=== PATIENT | female | born 1945 | race Caucasian/White ===

== ENCOUNTER 2020-01-29 01:33 | Inpatient (IN) | payer MEDICARE, BC ==
[~2020-01-29] VITALS: Ht 167.6 cm; Wt 72.7 kg
[~2020-01-29 01:33] MED LIST: AMLO5TAB4 PO; ASPI-611 PO; ATOR20TA PO; CALC-1074 PO; CHOL200026 PO; CLOP-32 PO; CYAN-51 PO; FAMO20TA82 PO; FISH1CAP15 PO; GLUC1CAP17 PO; LISI1TAB51 PO; MAGN400C PO; NITR0.4T51 SL; POTA2TAB17 PO; PRED10TA PO
[2020-01-29 02:07] LABS: BASOPHILS # (AUTO) 0.1 X10'3 (0-0.2); BASOPHILS % (AUTO) 0.8 % (0-1); EOSINOPHILS # (AUTO) 0.1 X10'3 (0-0.9); EOSINOPHILS % (AUTO) 1.2 % (0-6); HEMOGLOBIN 12.4 g/dl (12.0-16.0); LYMPHOCYTES # (AUTO) 1.3 X10'3 (1.1-4.8); LYMPHOCYTES % (AUTO) 14.4 % (21-51); MEAN CORPUSCULAR HEMOGLOBIN 32.4 PG (27.0-31.0); MEAN CORPUSCULAR HGB CONC 34.4 g/dL (33.0-36.5); MEAN CORPUSCULAR VOLUME 94.3 FL (78-98); MEAN PLATELET VOLUME 6.9 FL (7.4-10.4); MONOCYTES # (AUTO) 0.5 X10'3 (0-0.9); MONOCYTES % (AUTO) 5.7 % (2-12); NEUTROPHILS % (AUTO) 77.9 % (42-75); PLATELET COUNT 402 X10'3 (140-440); RED BLOOD COUNT 3.82 X10'6 (4.20-5.60); RED CELL DISTRIBUTION WIDTH 14.2 % (11.5-14.5)
[2020-01-29 02:21] LABS: ALANINE AMINOTRANSFERASE 26 U/L (12-78); ALBUMIN 3.4 G/DL (3.4-5.0); ALKALINE PHOSPHATASE 71 IU/L (46-116); ANION GAP 5 (8-16); ASPARTATE AMINO TRANSFERASE 21 U/L (10-37); BILIRUBIN,TOTAL 0.3 MG/DL (0.1-1.0); BLOOD UREA NITROGEN 21 MG/DL (7-18); BUN/CREATININE RATIO 25.9 (6.6-38.0); CALCIUM 8.9 MG/DL (8.5-10.1); CHLORIDE 100 MMOL/L (99-107); CREATININE 0.81 MG/DL (0.40-0.90); POTASSIUM 3.7 MMOL/L (3.5-5.1); SODIUM 137 MMOL/L (135-145); TOTAL CARBON DIOXIDE 32.1 MMOL/L (24-32); TOTAL PROTEIN 6.9 G/DL (6.4-8.2); eGFR 69 ML/MIN
[2020-01-29 02:31] LABS: GLUCOSE 136 MG/DL (70-104)
[2020-01-29] MEDS ORDERED: pantoprazole 40 MG vial IV ONE (04:15)
[2020-01-29] MEDS ORDERED: normal saline 1000ML IV soln IVB ONE (04:15)
[2020-01-29 04:35] LABS: PARTIAL THROMBOPLASTIN TIME 32 SECONDS (22-32)
[2020-01-29] MEDS ORDERED: methylPREDNISolone sod succ 125mg/2ml vial IV ONE (05:30)
[2020-01-29] MEDS ORDERED: ipratropium/albuterol 3ml nebule NEB ONE (05:30)
[2020-01-29] MEDS ORDERED: mag hydrox/Alum hydrox/simeth 30ml oral suspension PO PRN (05:45)
[2020-01-29] MEDS ORDERED: acetaminophen 325mg tablet PO PRN ×2 (05:45)
[2020-01-29] MEDS ORDERED: HYDROcodone/acetaminophen 5mg/325mg tablet PO PRN (05:45)
[2020-01-29] MEDS ORDERED: morphine 2 MG/ML inj. syringe IV PRN ×2 (05:45)
[2020-01-29] MEDS ORDERED: ondansetron/PF 4mg/2ml inj IV PRN (05:45)
[2020-01-29] MEDS ORDERED: magnesium hydroxide 30ml (MOM) UD suspension PO PRN (05:45)
--- NOTE | 2020-01-29 06:46 | NUR ---
I have received report from Franki ED RN and had the opportunity to ask questions and assume patient care.
--- NOTE | 2020-01-29 07:16 | NUR ---
Pt arrived to Ortho/Neuro floor and transferred to hospital bed. Call light placed within reach, bed rails up x2.
[2020-01-29 07:30] VITALS: BP 118/61
[2020-01-29] MEDS: dextrose 5%-1/2 normal saline 1,000 ML IV SCH ×2 (07:43→17:35)
[2020-01-29] MEDS ORDERED: magnesium 4gm in 100ml NS 100 ML IV PRN (09:55)
[2020-01-29] MEDS ORDERED: potassium CL 10mEq/100ml bag 100 ML IV PRN (09:55)
[2020-01-29] MEDS ORDERED: magnesium Cl slow-release 64mg tablet PO PRN (09:55)
[2020-01-29] MEDS ORDERED: potassium Cl 20 mEq SR tablet PO PRN (09:55)
[2020-01-29 10:00] VITALS: BP 119/57
[2020-01-29] MEDS ORDERED: nitroGLYCERIN 0.4mg SUBLingual tab SL PRN (10:05)
[2020-01-29] MEDS ORDERED: albuterol 2.5 MG/3 ML nebule NEB PRN (10:05)
[2020-01-29 10:16] LABS: HEMOGLOBIN 11.2 g/dl (12.0-16.0); MEAN CORPUSCULAR HEMOGLOBIN 32.7 PG (27.0-31.0); MEAN CORPUSCULAR VOLUME 93.5 FL (78-98); MEAN PLATELET VOLUME 6.7 FL (7.4-10.4); PLATELET COUNT 367 X10'3 (140-440); RED BLOOD COUNT 3.42 X10'6 (4.20-5.60)
[2020-01-29 10:27] VITALS: BP_SYST 117; BP_SYST 120; BP_SYST 121; BP_DIAS 46; BP_DIAS 49
[2020-01-29] MEDS: magnesium oxide 400mg tablet PO SCH (11:13)
[2020-01-29] MEDS: HYDROchlorothiazide 12.5mg capsule PO SCH (11:13)
[2020-01-29] MEDS: calcium carbonate/vitamin D3 tablet PO SCH (11:14)
[2020-01-29] MEDS: lisinopril 20mg tablet PO SCH (11:15)
[2020-01-29] MEDS: cyanocobalamin 500mcg tablet PO SCH (11:15)
[2020-01-29] MEDS ORDERED: PEG 3350/Na sulf,bicarb,Cl/KCl oral sol 4 liter bottle PO ONE (16:00)
--- NOTE | 2020-01-29 16:18 | NUR ---
Student documentation: I have reviewed assessments performed and documented by Carole Vazquez SN [facility].
[2020-01-29 18:00] VITALS: BP 137/53
--- NOTE | 2020-01-29 18:24 | NUR ---
Problems reprioritized. Patient report given, questions answered & plan of care reviewed with MARGARET Saldivar.
--- NOTE | 2020-01-29 18:27 | NUR ---
Patient in room ORTHO 4015. I have received report from nyla ROBLES and had the opportunity to ask questions and assume patient care.
[2020-01-29] MEDS: K and/or MAG REPLACEMENT MC SCH (19:29)
[2020-01-29 20:00] VITALS: BP_SYST 122; BP_SYST 137; BP_DIAS 49; BP_DIAS 63
[2020-01-29] MEDS: atorvastatin 20mg tablet PO SCH (20:11)
[2020-01-29 22:00] VITALS: BP 159/64
[2020-01-30] VITALS (17 sets, daily range): BP systolic 87–155; BP diastolic 31–67
[2020-01-30] MEDS: dextrose 5%-1/2 normal saline 1,000 ML IV SCH (02:56)
--- NOTE | 2020-01-30 06:37 | NUR ---
Problems reprioritized. Patient report given, questions answered & plan of care reviewed with Marie ROBLES.
[2020-01-30 07:24] LABS: BASOPHILS % (AUTO) 0.2 % (0-1); EOSINOPHILS % (AUTO) 0 % (0-6); HEMATOCRIT 32.3 % (35.0-45.0); LYMPHOCYTES # (AUTO) 1.1 X10'3 (1.1-4.8); LYMPHOCYTES % (AUTO) 8.3 % (21-51); MEAN CORPUSCULAR HEMOGLOBIN 31.5 PG (27.0-31.0); MEAN CORPUSCULAR VOLUME 92.6 FL (78-98); MEAN PLATELET VOLUME 7.2 FL (7.4-10.4); MONOCYTES # (AUTO) 0.6 X10'3 (0-0.9); MONOCYTES % (AUTO) 4.7 % (2-12); NEUTROPHILS # (AUTO) 11.1 X10'3 (1.8-7.7); NEUTROPHILS % (AUTO) 86.8 % (42-75); PLATELET COUNT 459 X10'3 (140-440); RED BLOOD COUNT 3.49 X10'6 (4.20-5.60); RED CELL DISTRIBUTION WIDTH 13.9 % (11.5-14.5); WHITE BLOOD COUNT 12.8 X10'3 (4.5-11.0)
[2020-01-30 07:30] LABS: ALBUMIN 3.2 G/DL (3.4-5.0); ANION GAP 8 (8-16); BLOOD UREA NITROGEN 7 MG/DL (7-18); BUN/CREATININE RATIO 11.7 (6.6-38.0); CALCIUM 8.7 MG/DL (8.5-10.1); CHLORIDE 99 MMOL/L (99-107); GLUCOSE 97 MG/DL (70-104); MAGNESIUM 1.9 MG/DL (1.5-2.4); PHOSPHORUS 2.9 MG/DL (2.3-4.5); POTASSIUM 3.6 MMOL/L (3.5-5.1); SODIUM 136 MMOL/L (135-145); TOTAL CARBON DIOXIDE 29.2 MMOL/L (24-32); eGFR > 90 ML/MIN
[2020-01-30] MEDS: K and/or MAG REPLACEMENT MC SCH ×2 (08:00→20:00)
[2020-01-30] MEDS ORDERED: CHOLECALCIFEROL 2000 UNIT PO SCH (08:00)
[2020-01-30] MEDS ORDERED: famotidine 20mg tablet PO SCH (08:00)
[2020-01-30] MEDS ORDERED: [UNRECOGNIZED DRUG - OTHER] PO SCH (08:00)
[2020-01-30] MEDS: OMEGA-3/DHA/EPA/FISH OIL 1 EACH CAPSULE.DR PO SCH (08:55)
[2020-01-30] MEDS: HYDROchlorothiazide 12.5mg capsule PO SCH (08:59)
[2020-01-30] MEDS: magnesium oxide 400mg tablet PO SCH (08:59)
[2020-01-30] MEDS: amLODIPine 5mg tablet PO SCH (09:00)
[2020-01-30] MEDS: calcium carbonate/vitamin D3 tablet PO SCH (09:00)
[2020-01-30] MEDS: lisinopril 20mg tablet PO SCH (09:01)
[2020-01-30] MEDS: cyanocobalamin 500mcg tablet PO SCH (09:01)
[2020-01-30] MEDS ORDERED: FLU VACC QS2020-21(6MOS UP)/PF 60 MCG/0.5 ML SYRINGE IMVAC ONE (10:00)
[2020-01-30] MEDS: famotidine 10mg tablet PO SCH (10:02)
--- NOTE | 2020-01-30 10:12 | NUR ---
[id number] Gus - Can patient get a breathing treatment? Thank you
[2020-01-30] MEDS ORDERED: ipratropium/albuterol 3ml nebule NEB PRN (10:35)
[2020-01-30] MEDS ORDERED: methylPREDNISolone sod succ 125mg/2ml vial IV ONE (10:35)
[2020-01-30] MEDS: ipratropium/albuterol 3ml nebule NEB SCH ×3 (10:35→19:51)
--- NOTE | 2020-01-30 10:41 | NUR ---
MD at bedside, new orders received for SOB and anxiety. RT also at bedside with treatment.
[2020-01-30] MEDS: LORazepam 2 mg/ml vial IV PRN ×2 (10:49→20:52)
[2020-01-30] MEDS ORDERED: MIDAZolam 5mg/5ml vial ONE (12:49)
[2020-01-30] MEDS ORDERED: fentaNYL/PF 50MCG/1 ML 2ML syringe ONE (12:49)
[2020-01-30] MEDS: polyvinyl alcohol ophthalmic drops 15ml bottle EACHEYE SCH ×2 (14:00→20:32)
[2020-01-30] MEDS: methylPREDNISolone sod succ/PF 40mg inj. IV SCH ×2 (16:17→20:31)
--- NOTE | 2020-01-30 18:10 | NUR ---
Problems reprioritized. Patient report given, questions answered & plan of care reviewed with Janna ROBLES.
--- NOTE | 2020-01-30 18:26 | NUR ---
Patient in room ORTHO 4015. I have received report from Marie ROBLES and had the opportunity to ask questions and assume patient care.
[2020-01-30] MEDS: atorvastatin 20mg tablet PO SCH (20:31)
[2020-01-30] MEDS ORDERED: levoFLOXACIN 750MG TABLET PO ONE (23:40)
[2020-01-31] MEDS: polyvinyl alcohol ophthalmic drops 15ml bottle EACHEYE SCH ×2 (01:40→07:21)
[2020-01-31] MEDS: methylPREDNISolone sod succ/PF 40mg inj. IV SCH ×2 (01:40→07:15)
[2020-01-31] MEDS: ipratropium/albuterol 3ml nebule NEB SCH ×4 (03:48→13:05)
--- NOTE | 2020-01-31 03:48 | NUR ---
patient without sob/whz and requests not to be woken for svn treatments at [facility]. will request RT paged if she wakes at [facility] with sob/whz
[2020-01-31 06:00] VITALS: BP 122/57
[2020-01-31 06:11] LABS: BASOPHILS % (AUTO) 0.1 % (0-1); EOSINOPHILS % (AUTO) 0 % (0-6); HEMATOCRIT 29.8 % (35.0-45.0); HEMOGLOBIN 10.2 g/dl (12.0-16.0); LYMPHOCYTES # (AUTO) 0.3 X10'3 (1.1-4.8); LYMPHOCYTES % (AUTO) 3.8 % (21-51); MEAN CORPUSCULAR HEMOGLOBIN 31.5 PG (27.0-31.0); MEAN CORPUSCULAR HGB CONC 34.3 g/dL (33.0-36.5); MEAN CORPUSCULAR VOLUME 91.9 FL (78-98); MEAN PLATELET VOLUME 6.8 FL (7.4-10.4); MONOCYTES % (AUTO) 0.5 % (2-12); NEUTROPHILS # (AUTO) 7.3 X10'3 (1.8-7.7); NEUTROPHILS % (AUTO) 95.6 % (42-75); PLATELET COUNT 392 X10'3 (140-440); RED BLOOD COUNT 3.24 X10'6 (4.20-5.60); WHITE BLOOD COUNT 7.6 X10'3 (4.5-11.0)
[2020-01-31 06:23] LABS: ANION GAP 6 (8-16); BLOOD UREA NITROGEN 7 MG/DL (7-18); BUN/CREATININE RATIO 9.3 (6.6-38.0); CHLORIDE 99 MMOL/L (99-107); CREATININE 0.75 MG/DL (0.40-0.90); GLUCOSE 139 MG/DL (70-104); MAGNESIUM 1.9 MG/DL (1.5-2.4); POTASSIUM 3.3 MMOL/L (3.5-5.1); SODIUM 134 MMOL/L (135-145); TOTAL CARBON DIOXIDE 29.5 MMOL/L (24-32); eGFR 76 ML/MIN
--- NOTE | 2020-01-31 06:29 | NUR ---
Problems reprioritized. Patient report given, questions answered & plan of care reviewed with Grace ROBLES.
[2020-01-31] MEDS: magnesium oxide 400mg tablet PO SCH (07:14)
[2020-01-31] MEDS: famotidine 10mg tablet PO SCH (07:14)
[2020-01-31] MEDS: cyanocobalamin 500mcg tablet PO SCH (07:14)
[2020-01-31] MEDS: calcium carbonate/vitamin D3 tablet PO SCH (07:15)
[2020-01-31] MEDS: potassium Cl 20 mEq SR tablet PO PRN ×2 (07:15→13:21)
[2020-01-31] MEDS: OMEGA-3/DHA/EPA/FISH OIL 1 EACH CAPSULE.DR PO SCH (07:15)
[2020-01-31] MEDS: amLODIPine 5mg tablet PO SCH (07:16)
[2020-01-31] MEDS: HYDROchlorothiazide 12.5mg capsule PO SCH (07:16)
[2020-01-31] MEDS: lisinopril 20mg tablet PO SCH (07:17)
[2020-01-31 08:00] VITALS: BP_SYST 107; BP_SYST 114; BP_SYST 130; BP_DIAS 43; BP_DIAS 46; BP_DIAS 55
[2020-01-31] MEDS: K and/or MAG REPLACEMENT MC SCH (08:00)
[2020-01-31 10:00] VITALS: BP 114/46
[2020-01-31] MEDS ORDERED: PANT40TA54 PO (10:53)
[2020-01-31] MEDS ORDERED: POLY17PO10 PO (10:53)
[2020-01-31] MEDS ORDERED: PRED10TA23 PO (10:53)
[2020-01-31] MEDS ORDERED: LEVO750T46 PO (10:53)
[2020-01-31] MEDS ORDERED: ALBU8.5H8 INH (10:53)
[2020-01-31] MEDS ORDERED: BUDE10.22 INH (10:55)
--- NOTE | 2020-01-31 13:30 | NUR ---
Patient is being discharged at this time. She was taught all medications and follow up appointments that she needs to make. Patient taken in wheel chair to private vehicle.
[2020-01-31] MEDS ORDERED: lactobacillus rhamnosus 10,000 MMU CELLS/CAPSULE PO SCH (20:00)
[2020-01-31] MEDS ORDERED: levoFLOXACIN 750MG TABLET PO SCH (22:00)
--- NOTE | 2020-02-03 10:46 | NUR ---
Case Management DC follow up 02/03/20: Spoke w/pt via telephone. s/p: lower GI bleed, SOB, colonoscopy. Pt Reports: "doing good, taking it easy" Denies: Acute/continuous CP, emergent SOB, resp distress, orthopnea, dyspnea, N/V, hematemesis, weakness, vertigo, syncope episodes, orthostatic hypotension, TOSCANO, blurry vision, s/s stroke/FAST, dysphagia, bladder pain, dysuria, polyuria, hematuria, retention, abd pain/distention, unexplained bruising, bleeding, fever, chills. LBM Sunday02/01/20 liquid, little blood. Verbalizes understanding of new Rx after education:discussed inhaler orders, PRN instructions, why prescribed; continues/resumes current Rx as ordered, denies ase r/t polypharmacy. Verbalizes compliance w/aftercare. agrees to hydrate, avoid constipation/new order for miralax. Verbalizes understanding of s/s that warrant -/ER visit for further evaluation. Pt acknowledges need to schedule/confirm/keep follow up appt w/PCP/Trisha Roland 02/10/20 referral for GI/Dr Jaeger, pulmonary function test r/t possible COPD, discuss new med orders/reconcile; Dr Burnett 02/21/20. Needs met, questions/concerns addressed at DC; No further questions/concerns r/t recent hospital stay and/or DC status at this time.
== END 2020-01-31 13:30 | disposition home or self-care (01) | DRG 378 ==
LOC: ER 01:34 → ED HOLD 05:44 → ORTHO 4S 06:51
PROVIDERS: ADMIT Internal Medicine; ATTEND Family Medicine
PROC: 0DBH8ZX Excision of Cecum, Via Natural or Artificial Opening Endoscopic, Diagnostic (ICD-10-PCS; principal; 2020-01-30)
PROC: 3E02340 Introduction of Influenza Vaccine into Muscle, Percutaneous Approach (ICD-10-PCS; 2020-01-30)
DX: K57.31 Diverticulosis of large intestine without perforation or abscess with bleeding (principal); D68.9 Coagulation defect, unspecified; J44.1 Chronic obstructive pulmonary disease with (acute) exacerbation; K63.3 Ulcer of intestine; F17.210 Nicotine dependence, cigarettes, uncomplicated; G40.909 Epilepsy, unspecified, not intractable, without status epilepticus; E78.5 Hyperlipidemia, unspecified; I73.9 Peripheral vascular disease, unspecified; I11.0 Hypertensive heart disease with heart failure; I50.9 Heart failure, unspecified; Z98.51 Tubal ligation status; Z23 Encounter for immunization; Z71.6 Tobacco abuse counseling
CPT/HCPCS: 36415; 45380; 71045; 80048; 80053; 83735; 83880; 84100; 84484; 85025; 85027; 85610; 85730; 87081; 93005; 94640; 94760; 96374; 96375; 99152; 99153; 99285; A4620; C9113; G0378; J2060; J2250; J2920; J2930; J3010; J7030; J7040; Q2039

== ENCOUNTER 2021-03-05 12:54 | Emergency (ER) | payer MEDICARE, BC ==
[~2021-03-05] VITALS: Ht 165.1 cm; Wt 74.1 kg
[~2021-03-05 12:54] MED LIST changes: -ASPI-611 PO; +BUSP10TA11 PO; -FAMO20TA82 PO; -GLUC1CAP17 PO; -PRED10TA PO
[2021-03-05 12:57] VITALS: BP 131/55
[2021-03-05] MEDS ORDERED: HYDR-3965 PO (14:07)
== END 2021-03-05 14:14 | disposition home or self-care (01) ==
LOC: ER 12:55
DX: M79.671 Pain in right foot (principal); I11.0 Hypertensive heart disease with heart failure; I50.9 Heart failure, unspecified; J44.9 Chronic obstructive pulmonary disease, unspecified; Z86.69 Personal history of other diseases of the nervous system and sense organs; Z86.718 Personal history of other venous thrombosis and embolism; Z98.51 Tubal ligation status; Z72.89 Other problems related to lifestyle; Z79.899 Other long term (current) drug therapy
CPT/HCPCS: 73630; 99283

== ENCOUNTER 2023-05-15 23:28 | Inpatient (IN) | payer MEDICARE, BC ==
[~2023-05-15] VITALS: Ht 165.1 cm; Wt 78.0 kg
[~2023-05-15 23:28] MED LIST changes: -BUSP10TA11 PO; +CYAN-104 PO; -CYAN-51 PO
[2023-05-16] VITALS (11 sets, daily range): BP systolic 112–125; BP diastolic 43–57; PULSE 94–115; RESP 15–26; TEMP 97.8–98.2; O2SAT 89–99
[2023-05-16 00:10] LABS: EOSINOPHILS # (AUTO) 0.1 X10'3 (0-0.9); MONOCYTES # (AUTO) 0.5 X10'3 (0-0.9); NEUTROPHILS # (AUTO) 4.1 X10'3 (1.8-7.7)
[2023-05-16] MEDS ORDERED: morphine 2 MG/ML inj. syringe IV ONE (00:10)
[2023-05-16] MEDS ORDERED: ondansetron/PF 4mg/2ml inj IV ONE (00:10)
[2023-05-16 00:12] LABS: BASOPHILS # (AUTO) 0.1 X10'3 (0-0.2); EOSINOPHILS % (AUTO) 1.2 % (0-6); LYMPHOCYTES # (AUTO) 1.4 X10'3 (1.1-4.8); LYMPHOCYTES % (AUTO) 22.9 % (21-51); MEAN CORPUSCULAR HEMOGLOBIN 19.9 PG (27.0-31.0); MEAN CORPUSCULAR HGB CONC 29.5 g/dL (33.0-36.5); MEAN CORPUSCULAR VOLUME 67.6 FL (78-98); MEAN PLATELET VOLUME 8.1 FL (7.4-10.4); MONOCYTES % (AUTO) 7.6 % (2-12); NEUTROPHILS % (AUTO) 65.9 % (42-75); PLATELET COUNT 395 X10'3 (140-440); RED BLOOD COUNT 2.29 X10'6 (4.20-5.60); RED CELL DISTRIBUTION WIDTH 20.1 % (11.5-14.5); WHITE BLOOD COUNT 6.2 X10'3 (4.5-11.0)
[2023-05-16 00:19] LABS: ALANINE AMINOTRANSFERASE 21 U/L (12-78); ALBUMIN 2.9 G/DL (3.4-5.0); ALBUMIN/GLOBULIN RATIO 0.9 (1.1-1.5); ALKALINE PHOSPHATASE 72 IU/L (46-116); ANION GAP 12 (8-16); ASPARTATE AMINO TRANSFERASE 46 U/L (10-37); BILIRUBIN,TOTAL 0.3 MG/DL (0.1-1.0); BLOOD UREA NITROGEN 19 MG/DL (7-18); BUN/CREATININE RATIO 18.4 (10.0-20.0); CALCIUM 8.3 MG/DL (8.5-10.1); CHLORIDE 101 MMOL/L (99-107); CREATININE 1.03 MG/DL (0.40-0.90); GLUCOSE 119 MG/DL (70-104); SODIUM 142 MMOL/L (135-145); TOTAL CARBON DIOXIDE 29.4 MMOL/L (24-32); TOTAL PROTEIN 6.3 G/DL (6.4-8.2); eCRCL 42 ML/MIN; eGFR 52 ML/MIN
[2023-05-16 00:27] LABS: PRO BRAIN NATRIURETIC PEPTIDE 3761 PG/ML (0-450)
[2023-05-16 00:33] LABS: HEMATOCRIT 15.5 % (35.0-45.0); HEMOGLOBIN 4.6 g/dl (12.0-16.0)
[2023-05-16 01:05] LABS: NUCLEATED RED BLOOD CELLS 1 /100WBC (0-0); TOTAL CELLS COUNTED 100
[2023-05-16 01:11] LABS: ANISOCYTOSIS 3+; MICROCYTOSIS 2+; PLATELET ESTIMATE NORMAL
[2023-05-16 01:12] LABS: LARGE PLATELETS FEW
[2023-05-16 01:13] LABS: ELLIPTOCYTES FEW; HYPOCHROMASIA 1+; POLYCHROMASIA FEW; SCHISTOCYTES FEW
[2023-05-16 01:14] LABS: BURR CELLS FEW; TEAR DROP CELLS FEW
[2023-05-16 01:21] LABS: OCCULT BLOOD STOOL NEGATIVE (Neg)
[2023-05-16 01:26] LABS: POTASSIUM 3.2 MMOL/L (3.5-5.1)
[2023-05-16] MEDS ORDERED: potassium Cl 40MEQ/1/2NS 520ml 520 ML IV PRN (02:55)
[2023-05-16] MEDS ORDERED: ondansetron/PF 4mg/2ml inj IV PRN (02:55)
[2023-05-16] MEDS ORDERED: magnesium 2GM in 50ml NS 50 ML IV PRN (02:55)
[2023-05-16] MEDS ORDERED: magnesium 4gm in 100ml NS 100 ML IV PRN (02:55)
[2023-05-16] MEDS ORDERED: potassium Cl 20 mEq SR tablet PO PRN (02:55)
[2023-05-16] MEDS ORDERED: acetaminophen 325mg tablet PO PRN (02:55)
[2023-05-16] MEDS ORDERED: magnesium Cl slow-release 64mg tablet PO PRN (02:55)
[2023-05-16] MEDS: CefTRIAXone 2gm/D5W 50ml BAG 50 ML IV SCH ×2 (03:24→08:47)
[2023-05-16] MEDS: albuterol 2.5 MG/3 ML nebule NEB PRN (08:14)
[2023-05-16] MEDS ORDERED: ipratropium/albuterol 3ml nebule NEB PRN (08:35)
[2023-05-16] MEDS: furosemide 20 MG/2 ML vial IV SCH (08:48)
[2023-05-16] MEDS: pantoprazole 40 MG vial IV SCH (08:48)
[2023-05-16] MEDS: aspirin 81mg, enteric-coated 1 TAB TABLET.DR PO SCH (09:01)
[2023-05-16 09:34] LABS: BILIRUBIN,URINE NEGATIVE (Neg); CLARITY,URINE SLIGHTLY CLOUDY (Clear); COLOR,URINE YELLOW (Yellow); GLUCOSE, URINE NEGATIVE (Neg); KETONES,URINE NEGATIVE (Neg); LEUKOCYTE ESTERASE ,URINE NEGATIVE (Neg); NITRITES, URINE NEGATIVE (Neg); OCCULT BLOOD,URINE NEGATIVE (Neg); PROTEIN,URINE NEGATIVE (Neg); UROBILINOGEN,URINE 0.2 E.U/dL (0.2-1.0)
[2023-05-16 09:52] LABS: % IRON SATURATION 13 % (11-46); IRON 50 UG/DL (49-151); TOTAL IRON BINDING CAPACITY 386 UG/DL (259-388)
[2023-05-16 09:56] LABS: MUCUS STRANDS MODERATE /LPF (Neg); SQUAMOUS EPITHELIAL CELL,UR MANY /LPF (FEW)
[2023-05-16 09:57] LABS: BACTERIA,URINE FEW /HPF (Neg); CAL OXALATE CRYSTALS FEW /HPF (NEGATIVE); RBC,URINE 0-2 /HPF (0-2)
[2023-05-16 10:02] LABS: UA COLLECTION TYPE OTHER
[2023-05-16] MEDS ORDERED: furosemide 10 MG/1 ML 10ml inj IV ONE (10:10)
[2023-05-16] MEDS ORDERED: furosemide 20 MG/2 ML vial IV ONE ×2 (11:30→15:55)
[2023-05-16 14:04] LABS: THYROID STIMULATING HORMONE 1.72 ulU/ml (0.34-4.50)
[2023-05-16 15:25] LABS: RED BLOOD COUNT 3.25 X10'6 (4.20-5.60); RETICULOCYTE % (AUTO) 2.3 % (0.5-1.5)
[2023-05-16 16:44] LABS: HEMATOCRIT 28.9 % (35.0-45.0); HEMOGLOBIN 9.1 g/dl (12.0-16.0); MEAN CORPUSCULAR HEMOGLOBIN 24.2 PG (27.0-31.0); MEAN CORPUSCULAR HGB CONC 31.3 g/dL (33.0-36.5); MEAN CORPUSCULAR VOLUME 77.4 FL (78-98); MEAN PLATELET VOLUME 7.8 FL (7.4-10.4); PLATELET COUNT 291 X10'3 (140-440); RED BLOOD COUNT 3.74 X10'6 (4.20-5.60); RED CELL DISTRIBUTION WIDTH 23.7 % (11.5-14.5); WHITE BLOOD COUNT 8.5 X10'3 (4.5-11.0)
[2023-05-16 20:27] LABS: ALANINE AMINOTRANSFERASE 22 U/L (12-78); ALBUMIN 2.9 G/DL (3.4-5.0); ALBUMIN/GLOBULIN RATIO 0.8 (1.1-1.5); ALKALINE PHOSPHATASE 76 IU/L (46-116); ANION GAP 5 (8-16); ASPARTATE AMINO TRANSFERASE 28 U/L (10-37); BILIRUBIN,TOTAL 0.6 MG/DL (0.1-1.0); BLOOD UREA NITROGEN 14 MG/DL (7-18); BUN/CREATININE RATIO 17.9 (10.0-20.0); CALCIUM 8.3 MG/DL (8.5-10.1); CHLORIDE 99 MMOL/L (99-107); CREATININE 0.78 MG/DL (0.40-0.90); GLUCOSE 108 MG/DL (70-104); SODIUM 141 MMOL/L (135-145); TOTAL CARBON DIOXIDE 36.8 MMOL/L (24-32); TOTAL PROTEIN 6.4 G/DL (6.4-8.2); eCRCL 55 ML/MIN; eGFR 72 ML/MIN
[2023-05-16 20:32] LABS: POTASSIUM 2.8 MMOL/L (3.5-5.1)
[2023-05-16] MEDS ORDERED: temazepam 15mg capsule PO ONE (20:50)
[2023-05-16] MEDS: potassium Cl 20 mEq SR tablet PO PRN (21:57)
[2023-05-17] VITALS (11 sets, daily range): BP systolic 106–131; BP diastolic 41–56; PULSE 84–107; RESP 14–22; TEMP 96.6–98.7; O2SAT 89–100
[2023-05-17] MEDS: potassium Cl 20 mEq SR tablet PO PRN (02:47)
[2023-05-17 07:36] LABS: BASOPHILS # (AUTO) 0.1 X10'3 (0-0.2); BASOPHILS % (AUTO) 0.9 % (0-1); EOSINOPHILS # (AUTO) 0.2 X10'3 (0-0.9); EOSINOPHILS % (AUTO) 2.8 % (0-6); HEMATOCRIT 28.1 % (35.0-45.0); LYMPHOCYTES # (AUTO) 0.9 X10'3 (1.1-4.8); MEAN CORPUSCULAR HEMOGLOBIN 24.6 PG (27.0-31.0); MEAN CORPUSCULAR HGB CONC 31.8 g/dL (33.0-36.5); MEAN CORPUSCULAR VOLUME 77.2 FL (78-98); MEAN PLATELET VOLUME 8.1 FL (7.4-10.4); MONOCYTES # (AUTO) 0.5 X10'3 (0-0.9); MONOCYTES % (AUTO) 6.8 % (2-12); NEUTROPHILS # (AUTO) 6.2 X10'3 (1.8-7.7); NEUTROPHILS % (AUTO) 78.5 % (42-75); PLATELET COUNT 277 X10'3 (140-440); RED BLOOD COUNT 3.64 X10'6 (4.20-5.60); RED CELL DISTRIBUTION WIDTH 23.6 % (11.5-14.5); WHITE BLOOD COUNT 7.9 X10'3 (4.5-11.0)
[2023-05-17 08:19] LABS: ALANINE AMINOTRANSFERASE 22 U/L (12-78); ALBUMIN 2.6 G/DL (3.4-5.0); ALBUMIN/GLOBULIN RATIO 0.7 (1.1-1.5); ALKALINE PHOSPHATASE 67 IU/L (46-116); ANION GAP 7 (8-16); ASPARTATE AMINO TRANSFERASE 33 U/L (10-37); BILIRUBIN,TOTAL 0.5 MG/DL (0.1-1.0); BLOOD UREA NITROGEN 16 MG/DL (7-18); BUN/CREATININE RATIO 21.1 (10.0-20.0); CHLORIDE 99 MMOL/L (99-107); CREATININE 0.76 MG/DL (0.40-0.90); GLUCOSE 114 MG/DL (70-104); POTASSIUM 3.9 MMOL/L (3.5-5.1); SODIUM 137 MMOL/L (135-145); TOTAL CARBON DIOXIDE 31.3 MMOL/L (24-32); TOTAL PROTEIN 6.1 G/DL (6.4-8.2); eCRCL 57 ML/MIN; eGFR 74 ML/MIN
[2023-05-17 08:30] LABS: ANISOCYTOSIS 3+; MICROCYTOSIS 1+; PLATELET ESTIMATE NORMAL
[2023-05-17 08:31] LABS: HYPOCHROMASIA 1+
[2023-05-17] MEDS: furosemide 20 MG/2 ML vial IV SCH (08:50)
[2023-05-17] MEDS: pantoprazole 40 MG vial IV SCH (08:52)
[2023-05-17] MEDS: aspirin 81mg, enteric-coated 1 TAB TABLET.DR PO SCH (08:56)
[2023-05-17] MEDS: CefTRIAXone 2gm/D5W 50ml BAG 50 ML IV SCH (08:56)
[2023-05-17] MEDS ORDERED: iohexol 350MG/ML 100ml bottle IV ONE (10:58)
[2023-05-17] MEDS ORDERED: BETA45OI5 TOP (12:04)
[2023-05-17] MEDS ORDERED: BUSP10TA11 PO (12:04)
[2023-05-17] MEDS ORDERED: ASPI81TA52 PO (12:04)
[2023-05-17] MEDS ORDERED: LORA-268 PO (12:04)
[2023-05-17 14:55] LABS: BASOPHILS % (AUTO) 0.6 % (0-1); EOSINOPHILS # (AUTO) 0.1 X10'3 (0-0.9); EOSINOPHILS % (AUTO) 1.8 % (0-6); HEMATOCRIT 29.6 % (35.0-45.0); HEMOGLOBIN 9.2 g/dl (12.0-16.0); LYMPHOCYTES # (AUTO) 0.9 X10'3 (1.1-4.8); LYMPHOCYTES % (AUTO) 11.7 % (21-51); MEAN CORPUSCULAR HEMOGLOBIN 24.3 PG (27.0-31.0); MEAN CORPUSCULAR VOLUME 78.3 FL (78-98); MEAN PLATELET VOLUME 8.3 FL (7.4-10.4); MONOCYTES # (AUTO) 0.6 X10'3 (0-0.9); MONOCYTES % (AUTO) 7.6 % (2-12); NEUTROPHILS # (AUTO) 6.3 X10'3 (1.8-7.7); NEUTROPHILS % (AUTO) 78.3 % (42-75); PLATELET COUNT 261 X10'3 (140-440); RED BLOOD COUNT 3.78 X10'6 (4.20-5.60); RED CELL DISTRIBUTION WIDTH 24.5 % (11.5-14.5); WHITE BLOOD COUNT 8.1 X10'3 (4.5-11.0)
[2023-05-17] MEDS ORDERED: nitroGLYCERIN 0.4mg SUBLingual tab SL PRN (17:50)
[2023-05-17] MEDS: [UNRECOGNIZED DRUG - OTHER] TP SCH (20:00)
[2023-05-17] MEDS: BETAMET DIPROP TP SCH (20:00)
[2023-05-17] MEDS: atorvastatin 20mg tablet PO SCH (20:50)
[2023-05-17] MEDS: acetaminophen 325mg tablet PO PRN (20:50)
[2023-05-17] MEDS: busPIRone 5mg tablet PO SCH (20:50)
[2023-05-18] VITALS (11 sets, daily range): BP systolic 110–135; BP diastolic 46–61; PULSE 82–115; RESP 16–24; TEMP 97.3–99.2; O2SAT 93–97
[2023-05-18 06:39] LABS: BASOPHILS # (AUTO) 0.1 X10'3 (0-0.2); EOSINOPHILS # (AUTO) 0.3 X10'3 (0-0.9); EOSINOPHILS % (AUTO) 3.8 % (0-6); HEMATOCRIT 29.4 % (35.0-45.0); HEMOGLOBIN 9.3 g/dl (12.0-16.0); LYMPHOCYTES # (AUTO) 1.3 X10'3 (1.1-4.8); LYMPHOCYTES % (AUTO) 14.5 % (21-51); MEAN CORPUSCULAR HEMOGLOBIN 24.8 PG (27.0-31.0); MEAN CORPUSCULAR HGB CONC 31.7 g/dL (33.0-36.5); MEAN CORPUSCULAR VOLUME 78.2 FL (78-98); MEAN PLATELET VOLUME 8.3 FL (7.4-10.4); MONOCYTES # (AUTO) 0.6 X10'3 (0-0.9); MONOCYTES % (AUTO) 7.1 % (2-12); NEUTROPHILS # (AUTO) 6.6 X10'3 (1.8-7.7); NEUTROPHILS % (AUTO) 73.6 % (42-75); PLATELET COUNT 259 X10'3 (140-440); RED BLOOD COUNT 3.76 X10'6 (4.20-5.60); RED CELL DISTRIBUTION WIDTH 25.2 % (11.5-14.5); WHITE BLOOD COUNT 8.9 X10'3 (4.5-11.0)
[2023-05-18 06:45] LABS: ALANINE AMINOTRANSFERASE 23 U/L (12-78); ALBUMIN 2.9 G/DL (3.4-5.0); ALBUMIN/GLOBULIN RATIO 0.8 (1.1-1.5); ALKALINE PHOSPHATASE 70 IU/L (46-116); ANION GAP 2 (8-16); ASPARTATE AMINO TRANSFERASE 26 U/L (10-37); BILIRUBIN,TOTAL 0.4 MG/DL (0.1-1.0); BLOOD UREA NITROGEN 25 MG/DL (7-18); BUN/CREATININE RATIO 27.2 (10.0-20.0); CALCIUM 8.6 MG/DL (8.5-10.1); CHLORIDE 98 MMOL/L (99-107); CREATININE 0.92 MG/DL (0.40-0.90); GLUCOSE 106 MG/DL (70-104); POTASSIUM 4.3 MMOL/L (3.5-5.1); SODIUM 136 MMOL/L (135-145); TOTAL CARBON DIOXIDE 36.3 MMOL/L (24-32); TOTAL PROTEIN 6.5 G/DL (6.4-8.2); eCRCL 47 ML/MIN; eGFR 59 ML/MIN
[2023-05-18] MEDS ORDERED: furosemide 40mg/4ml inj IV ONE (07:45)
[2023-05-18 07:54] LABS: ANISOCYTOSIS 3+; MICROCYTOSIS 1+; PLATELET ESTIMATE NORMAL
[2023-05-18 07:55] LABS: POIKILOCYTOSIS FEW; POLYCHROMASIA FEW; STOMATOCYTES FEW
[2023-05-18] MEDS: BETAMET DIPROP TP SCH ×2 (08:00→20:00)
[2023-05-18] MEDS: furosemide 40mg/4ml inj IV SCH (08:00)
[2023-05-18] MEDS: [UNRECOGNIZED DRUG - OTHER] TP SCH ×2 (08:00→20:00)
[2023-05-18] MEDS ORDERED: aspirin 81mg, enteric-coated 1 TAB TABLET.DR PO SCH (08:00)
[2023-05-18] MEDS: cholecalciferol (vitamin D3) 1,000 unit (25mcg) tablet PO SCH (08:24)
[2023-05-18] MEDS: calcium carbonate/vitamin D3 tablet PO SCH (08:24)
[2023-05-18] MEDS: OMEGA-3/DHA/EPA/FISH OIL 1 EACH CAPSULE.DR PO SCH (08:24)
[2023-05-18] MEDS: CefTRIAXone 2gm/D5W 50ml BAG 50 ML IV SCH (08:24)
[2023-05-18] MEDS: aspirin 81mg, enteric-coated 1 TAB TABLET.DR PO SCH (08:25)
[2023-05-18] MEDS: busPIRone 5mg tablet PO SCH ×3 (08:25→20:26)
[2023-05-18] MEDS: cyanocobalamin 500mcg tablet PO SCH (08:25)
[2023-05-18] MEDS: amLODIPine 5mg tablet PO SCH (08:26)
[2023-05-18] MEDS: pantoprazole 40 MG vial IV SCH (08:26)
[2023-05-18] MEDS: lisinopril 20mg tablet PO SCH (08:26)
[2023-05-18] MEDS: HYDROchlorothiazide 12.5mg capsule PO SCH (08:26)
[2023-05-18] MEDS: magnesium oxide 400mg tablet PO SCH (08:26)
[2023-05-18] MEDS ORDERED: magnesium hydroxide 30ml (MOM) UD suspension PO PRN (17:20)
[2023-05-18 20:23] LABS: BASOPHILS # (AUTO) 0.1 X10'3 (0-0.2); BASOPHILS % (AUTO) 0.7 % (0-1); EOSINOPHILS # (AUTO) 0.3 X10'3 (0-0.9); EOSINOPHILS % (AUTO) 3.3 % (0-6); HEMATOCRIT 28.6 % (35.0-45.0); HEMOGLOBIN 8.9 g/dl (12.0-16.0); LYMPHOCYTES # (AUTO) 0.9 X10'3 (1.1-4.8); LYMPHOCYTES % (AUTO) 11.2 % (21-51); MEAN CORPUSCULAR HEMOGLOBIN 24.2 PG (27.0-31.0); MEAN CORPUSCULAR VOLUME 77.8 FL (78-98); MEAN PLATELET VOLUME 8.2 FL (7.4-10.4); MONOCYTES # (AUTO) 0.7 X10'3 (0-0.9); MONOCYTES % (AUTO) 8.6 % (2-12); NEUTROPHILS # (AUTO) 6.2 X10'3 (1.8-7.7); NEUTROPHILS % (AUTO) 76.2 % (42-75); PLATELET COUNT 233 X10'3 (140-440); RED BLOOD COUNT 3.68 X10'6 (4.20-5.60); RED CELL DISTRIBUTION WIDTH 25.4 % (11.5-14.5); WHITE BLOOD COUNT 8.1 X10'3 (4.5-11.0)
[2023-05-18] MEDS: atorvastatin 20mg tablet PO SCH (20:26)
[2023-05-18] MEDS ORDERED: Melatonin 3mg tablet PO PRN (22:40)
[2023-05-19] VITALS (10 sets, daily range): BP systolic 95–121; BP diastolic 45–57; PULSE 84–107; RESP 12–26; TEMP 97.1–97.7; O2SAT 96–100
[2023-05-19 06:23] LABS: BASOPHILS # (AUTO) 0.1 X10'3 (0-0.2); BASOPHILS % (AUTO) 1.1 % (0-1); EOSINOPHILS # (AUTO) 0.4 X10'3 (0-0.9); EOSINOPHILS % (AUTO) 4.8 % (0-6); HEMATOCRIT 28.1 % (35.0-45.0); HEMOGLOBIN 8.7 g/dl (12.0-16.0); LYMPHOCYTES % (AUTO) 12.8 % (21-51); MEAN CORPUSCULAR HEMOGLOBIN 24.3 PG (27.0-31.0); MEAN CORPUSCULAR HGB CONC 31.1 g/dL (33.0-36.5); MEAN CORPUSCULAR VOLUME 78.1 FL (78-98); MEAN PLATELET VOLUME 8.2 FL (7.4-10.4); MONOCYTES # (AUTO) 0.6 X10'3 (0-0.9); MONOCYTES % (AUTO) 8.2 % (2-12); NEUTROPHILS # (AUTO) 5.4 X10'3 (1.8-7.7); NEUTROPHILS % (AUTO) 73.1 % (42-75); PLATELET COUNT 238 X10'3 (140-440); RED CELL DISTRIBUTION WIDTH 25.6 % (11.5-14.5); WHITE BLOOD COUNT 7.4 X10'3 (4.5-11.0)
[2023-05-19 06:44] LABS: ALANINE AMINOTRANSFERASE 21 U/L (12-78); ALBUMIN 2.6 G/DL (3.4-5.0); ALBUMIN/GLOBULIN RATIO 0.8 (1.1-1.5); ALKALINE PHOSPHATASE 58 IU/L (46-116); ANION GAP 2 (8-16); ASPARTATE AMINO TRANSFERASE 22 U/L (10-37); BILIRUBIN,TOTAL 0.5 MG/DL (0.1-1.0); BLOOD UREA NITROGEN 24 MG/DL (7-18); BUN/CREATININE RATIO 37.5 (10.0-20.0); CALCIUM 8.3 MG/DL (8.5-10.1); CHLORIDE 97 MMOL/L (99-107); CREATININE 0.64 MG/DL (0.40-0.90); GLUCOSE 102 MG/DL (70-104); SODIUM 137 MMOL/L (135-145); TOTAL CARBON DIOXIDE 38.2 MMOL/L (24-32); TOTAL PROTEIN 5.9 G/DL (6.4-8.2); eCRCL 67 ML/MIN; eGFR 90 ML/MIN
[2023-05-19 07:00] LABS: ANISOCYTOSIS 3+; MICROCYTOSIS 1+; PLATELET ESTIMATE NORMAL
[2023-05-19 07:01] LABS: ELLIPTOCYTES FEW; POIKILOCYTOSIS FEW
[2023-05-19] MEDS: BETAMET DIPROP TP SCH ×2 (08:00→19:30)
[2023-05-19] MEDS: [UNRECOGNIZED DRUG - OTHER] TP SCH ×2 (08:00→19:30)
[2023-05-19] MEDS: furosemide 40mg/4ml inj IV SCH (08:21)
[2023-05-19] MEDS: aspirin 81mg, enteric-coated 1 TAB TABLET.DR PO SCH (08:21)
[2023-05-19] MEDS: OMEGA-3/DHA/EPA/FISH OIL 1 EACH CAPSULE.DR PO SCH (08:21)
[2023-05-19] MEDS: busPIRone 5mg tablet PO SCH ×3 (08:21→20:14)
[2023-05-19] MEDS: pantoprazole 40mg Tablet.DR PO SCH (08:21)
[2023-05-19] MEDS: CefTRIAXone 2gm/D5W 50ml BAG 50 ML IV SCH (08:21)
[2023-05-19] MEDS: HYDROchlorothiazide 12.5mg capsule PO SCH (08:22)
[2023-05-19] MEDS: azithromycin 250mg tablet PO SCH (08:22)
[2023-05-19] MEDS: lisinopril 20mg tablet PO SCH (08:22)
[2023-05-19] MEDS: cyanocobalamin 500mcg tablet PO SCH (08:22)
[2023-05-19] MEDS: amLODIPine 5mg tablet PO SCH (08:22)
[2023-05-19] MEDS: magnesium oxide 400mg tablet PO SCH (08:22)
[2023-05-19] MEDS: cholecalciferol (vitamin D3) 1,000 unit (25mcg) tablet PO SCH (08:22)
[2023-05-19] MEDS: calcium carbonate/vitamin D3 tablet PO SCH (08:22)
[2023-05-19] MEDS ORDERED: CefTRIAXone 2gm/D5W 50ml BAG 50 ML IV SCH (09:35)
[2023-05-19] MEDS: methylPREDNISolone sod succ/PF 40mg inj. IV SCH ×2 (15:30→20:56)
[2023-05-19] MEDS ORDERED: PEG 3350/Na sulf,bicarb,Cl/KCl oral sol 4 liter bottle PO ONE (15:40)
[2023-05-19] MEDS: albuterol 2.5 MG/3 ML nebule NEB PRN (17:30)
[2023-05-19] MEDS: budesonide 0.5mg/2ml UD nebule IH SCH (17:30)
[2023-05-19] MEDS: atorvastatin 20mg tablet PO SCH (20:14)
[2023-05-19] MEDS: lactobacillus rhamnosus 10,000 MMU CELLS/CAPSULE PO SCH (20:14)
[2023-05-19] MEDS: acetaminophen 325mg tablet PO PRN (21:06)
[2023-05-20] VITALS (10 sets, daily range): BP systolic 103–130; BP diastolic 54–90; PULSE 71–113; RESP 15–24; TEMP 97.4; O2SAT 94–97
[2023-05-20 06:51] LABS: ALANINE AMINOTRANSFERASE 21 U/L (12-78); ALBUMIN 2.7 G/DL (3.4-5.0); ALBUMIN/GLOBULIN RATIO 0.8 (1.1-1.5); ALKALINE PHOSPHATASE 59 IU/L (46-116); ANION GAP 4 (8-16); ASPARTATE AMINO TRANSFERASE 21 U/L (10-37); BILIRUBIN,TOTAL 0.3 MG/DL (0.1-1.0); BLOOD UREA NITROGEN 24 MG/DL (7-18); BUN/CREATININE RATIO 38.7 (10.0-20.0); CALCIUM 8.7 MG/DL (8.5-10.1); CHLORIDE 96 MMOL/L (99-107); CREATININE 0.62 MG/DL (0.40-0.90); GLUCOSE 151 MG/DL (70-104); POTASSIUM 3.3 MMOL/L (3.5-5.1); SODIUM 139 MMOL/L (135-145); TOTAL CARBON DIOXIDE 39.5 MMOL/L (24-32); TOTAL PROTEIN 6.3 G/DL (6.4-8.2); eCRCL 69 ML/MIN; eGFR > 90 ML/MIN
[2023-05-20] MEDS: [UNRECOGNIZED DRUG - OTHER] TP SCH (08:00)
[2023-05-20] MEDS: BETAMET DIPROP TP SCH (08:00)
[2023-05-20] MEDS ORDERED: LIDOcaine Viscous 15ml cup ONE (08:18)
[2023-05-20] MEDS ORDERED: fentaNYL/PF 50MCG/1 ML 2ML syringe ONE (08:18)
[2023-05-20] MEDS ORDERED: MIDAZolam 1 MG/ML 5ML VIAL ONE (08:18)
[2023-05-20] MEDS: budesonide 0.5mg/2ml UD nebule IH SCH (09:03)
[2023-05-20] MEDS ORDERED: CefTRIAXone 2gm/D5W 50ml BAG 50 ML IV SCH (09:35)
[2023-05-20] MEDS: cyanocobalamin 500mcg tablet PO SCH (10:48)
[2023-05-20] MEDS: calcium carbonate/vitamin D3 tablet PO SCH (10:49)
[2023-05-20] MEDS: lisinopril 20mg tablet PO SCH (10:49)
[2023-05-20] MEDS: cholecalciferol (vitamin D3) 1,000 unit (25mcg) tablet PO SCH (10:49)
[2023-05-20] MEDS: magnesium oxide 400mg tablet PO SCH (10:50)
[2023-05-20] MEDS: OMEGA-3/DHA/EPA/FISH OIL 1 EACH CAPSULE.DR PO SCH (10:50)
[2023-05-20] MEDS: HYDROchlorothiazide 12.5mg capsule PO SCH (10:50)
[2023-05-20] MEDS: amLODIPine 5mg tablet PO SCH (10:51)
[2023-05-20] MEDS: aspirin 81mg, enteric-coated 1 TAB TABLET.DR PO SCH (10:51)
[2023-05-20] MEDS: furosemide 40mg/4ml inj IV SCH (10:51)
[2023-05-20] MEDS: lactobacillus rhamnosus 10,000 MMU CELLS/CAPSULE PO SCH (10:51)
[2023-05-20] MEDS: methylPREDNISolone sod succ/PF 40mg inj. IV SCH (10:52)
[2023-05-20] MEDS: azithromycin 250mg tablet PO SCH (11:08)
[2023-05-20] MEDS: pantoprazole 40mg Tablet.DR PO SCH (11:08)
[2023-05-20] MEDS: busPIRone 5mg tablet PO SCH ×2 (12:08→13:00)
== END 2023-05-20 15:12 | DRG 377 ==
LOC: ER 23:29 → ED HOLD 05-16 02:58 → PCU 3S 05-16 17:13
PROVIDERS: ADMIT Internal Medicine; ATTEND Internal Medicine
PROC: 30233N1 Transfusion of Nonautologous Red Blood Cells into Peripheral Vein, Percutaneous Approach (ICD-10-PCS; 2023-05-16)
PROC: B32T1ZZ Computerized Tomography (CT Scan) of Left Pulmonary Artery using Low Osmolar Contrast (ICD-10-PCS; 2023-05-17)
PROC: B3201ZZ Computerized Tomography (CT Scan) of Thoracic Aorta using Low Osmolar Contrast (ICD-10-PCS; 2023-05-17)
PROC: B32S1ZZ Computerized Tomography (CT Scan) of Right Pulmonary Artery using Low Osmolar Contrast (ICD-10-PCS; 2023-05-17)
PROC: 0DB98ZX Excision of Duodenum, Via Natural or Artificial Opening Endoscopic, Diagnostic (ICD-10-PCS; principal; 2023-05-20)
PROC: 0DB78ZX Excision of Stomach, Pylorus, Via Natural or Artificial Opening Endoscopic, Diagnostic (ICD-10-PCS; 2023-05-20)
PROC: 0DJD8ZZ Inspection of Lower Intestinal Tract, Via Natural or Artificial Opening Endoscopic (ICD-10-PCS; 2023-05-20)
DX: K55.21 Angiodysplasia of colon with hemorrhage (principal); I50.33 Acute on chronic diastolic (congestive) heart failure; J18.9 Pneumonia, unspecified organism; J96.01 Acute respiratory failure with hypoxia; J44.1 Chronic obstructive pulmonary disease with (acute) exacerbation; J98.11 Atelectasis; F41.9 Anxiety disorder, unspecified; R91.1 Solitary pulmonary nodule; I25.10 Atherosclerotic heart disease of native coronary artery without angina pectoris; E87.6 Hypokalemia; D50.9 Iron deficiency anemia, unspecified; K29.70 Gastritis, unspecified, without bleeding; K57.30 Diverticulosis of large intestine without perforation or abscess without bleeding; I27.81 Cor pulmonale (chronic); R59.0 Localized enlarged lymph nodes; Z20.822 Contact with and (suspected) exposure to COVID-19; I11.0 Hypertensive heart disease with heart failure; I70.0 Atherosclerosis of aorta; Z87.891 Personal history of nicotine dependence; Z86.718 Personal history of other venous thrombosis and embolism; Z79.899 Other long term (current) drug therapy; Z79.02 Long term (current) use of antithrombotics/antiplatelets; Z98.51 Tubal ligation status; Z98.61 Coronary angioplasty status; Z79.82 Long term (current) use of aspirin
CPT/HCPCS: 36415; 36430; 43239; 45378; 71045; 71275; 80053; 81001; 82272; 82728; 83010; 83540; 83550; 83605; 83880; 84145; 84443; 84484; 85007; 85008; 85025; 85027; 85045; 85379; 86885; 86900; 86901; 86920; 87040; 87077; 87081; 87088; 87186; 87811; 88305; 93005; 93306; 94640; 94760; 97116; 97161; 97530; 99152; 99153; 99285; A4615; A4620; C9113; G0378; J0696; J1940; J2250; J2270; J2405; J2920; J3010; J3490; J7030; J7040; P9016; Q9967

== ENCOUNTER 2024-07-16 13:30 | Inpatient (IN) | payer MEDICARE, BC ==
[~2024-07-16] VITALS: Ht 162.6 cm; Wt 72.7 kg
[2024-07-16] VITALS (7 sets, daily range): PULSE 88–111; RESP 19–24; O2SAT 88–93
[~2024-07-16 13:30] MED LIST changes: +ASPI81TA52 PO; +BETA45OI5 TOP; +BUSP10TA11 PO; +LORA-268 PO
[2024-07-16 13:57] LABS: BASOPHILS # (AUTO) 0.1 X10'3 (0-0.2); EOSINOPHILS # (AUTO) 0.1 X10'3 (0-0.9); EOSINOPHILS % (AUTO) 1.6 % (0-6); HEMATOCRIT 34.7 % (35.0-45.0); HEMOGLOBIN 11.8 g/dl (12.0-16.0); LYMPHOCYTES % (AUTO) 14.4 % (21-51); MEAN CORPUSCULAR HEMOGLOBIN 31.1 PG (27.0-31.0); MEAN CORPUSCULAR VOLUME 91.3 FL (78-98); MEAN PLATELET VOLUME 7.8 FL (7.4-10.4); MONOCYTES # (AUTO) 0.3 X10'3 (0-0.9); MONOCYTES % (AUTO) 4.4 % (2-12); NEUTROPHILS # (AUTO) 5.3 X10'3 (1.8-7.7); NEUTROPHILS % (AUTO) 78.6 % (42-75); PLATELET COUNT 289 X10'3 (140-440); RED CELL DISTRIBUTION WIDTH 14.8 % (11.5-14.5); WHITE BLOOD COUNT 6.8 X10'3 (4.5-11.0)
[2024-07-16 14:06] LABS: ALBUMIN 3.7 G/DL (3.4-5.0); ANION GAP 6 (8-16); BILIRUBIN,TOTAL 0.4 MG/DL (0.1-1.0); BLOOD UREA NITROGEN 13 MG/DL (7-18); BUN/CREATININE RATIO 18.6 (10.0-20.0); CHLORIDE 97 MMOL/L (99-107); GLUCOSE 135 MG/DL (70-104); POTASSIUM 4.3 MMOL/L (3.5-5.1); SODIUM 136 MMOL/L (135-145); TOTAL CARBON DIOXIDE 33.4 MMOL/L (24-32); TOTAL PROTEIN 7.4 G/DL (6.4-8.2); eCRCL 58 ML/MIN; eGFR 81 ML/MIN
[2024-07-16 14:07] LABS: ALANINE AMINOTRANSFERASE 25 U/L (12-78); ALKALINE PHOSPHATASE 74 IU/L (46-116); ASPARTATE AMINO TRANSFERASE 17 U/L (10-37)
[2024-07-16 14:15] LABS: PRO BRAIN NATRIURETIC PEPTIDE 159 PG/ML (0-450)
[2024-07-16] MEDS: methylPREDNISolone sod succ 125mg/2ml vial IV ONE (16:41)
[2024-07-16] MEDS: ipratropium/albuterol 3ml nebule NEB ONE (16:42)
[2024-07-16 17:01] LABS: ABG BASE EXCESS 2.6 mmol/L (-2.0-3.0); ABG HCO3 26.7 mmol/L (21.0-28.0); ABG OXYGEN SATURATION 88.8 % (94.0-98.0); ABG PCO2 (T) 39.2 mmHg (32.0-45.0); ABG PH (T) 7.451 (7.350-7.450); ABG PO2 (T) 53.3 mmHg (83.0-108.0); ALLEN'S TEST POSITIVE; FCOHb 1.1 % (0.5-1.5); FMetHb 0.3 % (0.0-1.5); FO2Hb 87.6 % (94.0-98.0); MODE NASAL CANNULA; PATIENT TEMPERATURE 36.8; TOTAL HEMOGLOBIN 12.3 G/dl (12.0-16.0)
[2024-07-16] MEDS: CefTRIAXone/D5W-Rocephin 1gm 50 ML IV ONE (17:11)
[2024-07-16] MEDS ORDERED: mag hydrox/Alum hydrox/simeth 30ml oral suspension PO PRN (17:35)
[2024-07-16] MEDS ORDERED: potassium Cl 40MEQ/1/2NS 520ml 520 ML IV PRN (17:35)
[2024-07-16] MEDS ORDERED: potassium Cl 20 mEq SR tablet PO PRN ×2 (17:35)
[2024-07-16] MEDS ORDERED: acetaminophen 325mg tablet PO PRN (17:35)
[2024-07-16] MEDS ORDERED: magnesium Cl slow-release 64mg tablet PO PRN (17:35)
[2024-07-16] MEDS ORDERED: magnesium sulf-water 2g/50mL 50 ML IV PRN (17:35)
[2024-07-16] MEDS ORDERED: magnesium sulf-water 4G/100mL 100 ML IV PRN (17:35)
[2024-07-16] MEDS ORDERED: ondansetron/PF 4mg/2ml inj IV PRN (17:35)
[2024-07-16] MEDS ORDERED: albuterol 2.5 MG/3 ML nebule NEB PRN (18:05)
[2024-07-16 18:24] LABS: D-DIMER 1.17 MG/L FEU (0-0.50)
[2024-07-16 19:01] LABS: HEMOGLOBIN A1C 5.3 % (4.5-6.2)
[2024-07-16] MEDS: normal saline 1000ml 1,000 ML IV SCH (19:13)
[2024-07-16] MEDS: guaiFENesin ER 600mg tablet PO SCH (19:13)
[2024-07-16] MEDS: apixaban 5mg tablet PO SCH (19:13)
[2024-07-16] MEDS: K and/or MAG REPLACEMENT MC SCH (20:00)
[2024-07-16] MEDS: ipratropium/albuterol 3ml nebule NEB SCH (20:15)
[2024-07-16 20:19] LABS: CHOL/HDL RATIO 1.6 (0.00-4.99); CHOLESTEROL 170 MG/DL (0-200); HDL CHOLESTEROL 107 MG/DL (35-60); LDL CHOLESTEROL 46 MG/DL (50-100); TRIGLYCERIDES 55 MG/DL (20-135)
[2024-07-16 20:20] LABS: THYROID STIMULATING HORMONE 1.05 ulU/ml (0.34-4.50)
[2024-07-16] MEDS ORDERED: BUDE10.27 INH (21:34)
[2024-07-16] MEDS ORDERED: GABA-1405 PO (21:34)
[2024-07-17] VITALS (23 sets, daily range): BP systolic 95–148; BP diastolic 39–66; PULSE 78–108; RESP 18–26; TEMP 97.1–98.2; O2SAT 87–95
[2024-07-17 06:46] LABS: BASOPHILS % (AUTO) 0.3 % (0-1); EOSINOPHILS % (AUTO) 0 % (0-6); HEMATOCRIT 32.6 % (35.0-45.0); LYMPHOCYTES # (AUTO) 0.4 X10'3 (1.1-4.8); MEAN CORPUSCULAR HEMOGLOBIN 30.5 PG (27.0-31.0); MEAN CORPUSCULAR HGB CONC 33.6 g/dL (33.0-36.5); MEAN CORPUSCULAR VOLUME 90.9 FL (78-98); MEAN PLATELET VOLUME 7.8 FL (7.4-10.4); MONOCYTES % (AUTO) 0.8 % (2-12); NEUTROPHILS # (AUTO) 2.8 X10'3 (1.8-7.7); NEUTROPHILS % (AUTO) 87.9 % (42-75); PLATELET COUNT 265 X10'3 (140-440); RED BLOOD COUNT 3.59 X10'6 (4.20-5.60); RED CELL DISTRIBUTION WIDTH 14.4 % (11.5-14.5); WHITE BLOOD COUNT 3.2 X10'3 (4.5-11.0)
[2024-07-17 07:06] LABS: INR 0.9 INR; PROTHROMBIN TIME 9.9 SECONDS (9.0-12.0)
[2024-07-17 07:08] LABS: ALANINE AMINOTRANSFERASE 17 U/L (12-78); ALBUMIN 3.2 G/DL (3.4-5.0); ALBUMIN/GLOBULIN RATIO 0.9 (1.1-1.5); ALKALINE PHOSPHATASE 65 IU/L (46-116); ANION GAP 8 (8-16); ASPARTATE AMINO TRANSFERASE 16 U/L (10-37); BILIRUBIN,TOTAL 0.2 MG/DL (0.1-1.0); BLOOD UREA NITROGEN 18 MG/DL (7-18); BUN/CREATININE RATIO 32.1 (10.0-20.0); CALCIUM 8.7 MG/DL (8.5-10.1); CHLORIDE 98 MMOL/L (99-107); CREATININE 0.56 MG/DL (0.40-0.90); GLUCOSE 140 MG/DL (70-104); PHOSPHORUS 3.5 MG/DL (2.3-4.5); POTASSIUM 4.1 MMOL/L (3.5-5.1); SODIUM 133 MMOL/L (135-145); TOTAL CARBON DIOXIDE 26.6 MMOL/L (24-32); TOTAL PROTEIN 6.8 G/DL (6.4-8.2); eCRCL 73 ML/MIN; eGFR > 90 ML/MIN
[2024-07-17] MEDS ORDERED: nitroGLYCERIN 0.4mg SUBLingual tab SL PRN (07:45)
[2024-07-17] MEDS: lisinopril 20mg tablet PO SCH (08:00)
[2024-07-17] MEDS: HYDROchlorothiazide 12.5mg capsule PO SCH (08:00)
[2024-07-17] MEDS ORDERED: CefTRIAXone/D5W-Rocephin 1gm 50 ML IV SCH (08:00)
[2024-07-17] MEDS: pantoprazole 40mg Tablet.DR PO SCH (08:58)
[2024-07-17] MEDS: methylPREDNISolone sod succ 125mg/2ml vial IV SCH (08:59)
[2024-07-17] MEDS: azithromycin 250mg tablet PO SCH (09:01)
[2024-07-17] MEDS: busPIRone 5mg tablet PO SCH (09:11)
[2024-07-17] MEDS: aspirin 81mg, enteric-coated 1 TAB TABLET.DR PO SCH (09:11)
[2024-07-17] MEDS: clopidogrel 75mg tablet PO SCH (09:11)
[2024-07-17] MEDS: gabapentin 300mg capsule PO SCH (09:12)
[2024-07-17] MEDS: acetaminophen 325mg tablet PO PRN (09:14)
[2024-07-17] MEDS ORDERED: iohexol 350MG/ML 100ml bottle IV ONE (13:14)
[2024-07-17] MEDS: diltiazem 30mg tablet PO SCH (14:05)
[2024-07-17] MEDS: levoFLOXACIN-Levaquin 750MG/D5 150 ML IV SCH (19:48)
[2024-07-17] MEDS ORDERED: metoprolol succinate 25mg (24-HOUR) SR. Tablet PO SCH (20:00)
[2024-07-17] MEDS: atorvastatin 20mg tablet PO SCH (21:36)
[2024-07-18] VITALS (26 sets, daily range): BP systolic 116–123; BP diastolic 40–56; PULSE 72–102; RESP 15–27; TEMP 97.3–98; O2SAT 88–99
[2024-07-18 06:26] LABS: BASOPHILS % (AUTO) 0 % (0-1); EOSINOPHILS % (AUTO) 0 % (0-6); HEMATOCRIT 35.4 % (35.0-45.0); HEMOGLOBIN 11.8 g/dl (12.0-16.0); LYMPHOCYTES # (AUTO) 0.4 X10'3 (1.1-4.8); LYMPHOCYTES % (AUTO) 4.3 % (21-51); MEAN CORPUSCULAR HEMOGLOBIN 30.4 PG (27.0-31.0); MEAN CORPUSCULAR HGB CONC 33.3 g/dL (33.0-36.5); MEAN CORPUSCULAR VOLUME 91.1 FL (78-98); MEAN PLATELET VOLUME 7.6 FL (7.4-10.4); MONOCYTES # (AUTO) 0.1 X10'3 (0-0.9); MONOCYTES % (AUTO) 1.6 % (2-12); NEUTROPHILS # (AUTO) 8.7 X10'3 (1.8-7.7); NEUTROPHILS % (AUTO) 94.1 % (42-75); PLATELET COUNT 329 X10'3 (140-440); RED BLOOD COUNT 3.89 X10'6 (4.20-5.60); RED CELL DISTRIBUTION WIDTH 14.7 % (11.5-14.5); WHITE BLOOD COUNT 9.2 X10'3 (4.5-11.0)
[2024-07-18 06:48] LABS: ALANINE AMINOTRANSFERASE 20 U/L (12-78); ALBUMIN 3.5 G/DL (3.4-5.0); ALBUMIN/GLOBULIN RATIO 0.9 (1.1-1.5); ALKALINE PHOSPHATASE 69 IU/L (46-116); ANION GAP 10 (8-16); ASPARTATE AMINO TRANSFERASE 18 U/L (10-37); BILIRUBIN,TOTAL 0.2 MG/DL (0.1-1.0); BLOOD UREA NITROGEN 22 MG/DL (7-18); BUN/CREATININE RATIO 26.2 (10.0-20.0); CALCIUM 9.2 MG/DL (8.5-10.1); CHLORIDE 99 MMOL/L (99-107); CREATININE 0.84 MG/DL (0.40-0.90); GLUCOSE 148 MG/DL (70-104); MAGNESIUM 2.1 MG/DL (1.5-2.4); PHOSPHORUS 3.5 MG/DL (2.3-4.5); POTASSIUM 4.2 MMOL/L (3.5-5.1); SODIUM 136 MMOL/L (135-145); TOTAL CARBON DIOXIDE 27.5 MMOL/L (24-32); TOTAL PROTEIN 7.2 G/DL (6.4-8.2); eCRCL 48 ML/MIN; eGFR 66 ML/MIN
[2024-07-18] MEDS: LORazepam 0.5 MG tablet PO PRN (08:52)
[2024-07-18] MEDS: Melatonin 3mg tablet PO SCH (20:38)
[2024-07-18] MEDS: gabapentin 300mg capsule PO SCH (20:39)
[2024-07-19] VITALS (20 sets, daily range): BP systolic 97–119; BP diastolic 43–64; PULSE 67–102; RESP 15–22; TEMP 96.7–97.7; O2SAT 91–98
[2024-07-19] MEDS: HYDROcodone/acetaminophen 5mg/325mg tablet PO PRN (02:43)
[2024-07-19 06:27] LABS: BASOPHILS % (AUTO) 0 % (0-1); EOSINOPHILS % (AUTO) 0 % (0-6); HEMATOCRIT 31.3 % (35.0-45.0); HEMOGLOBIN 10.7 g/dl (12.0-16.0); LYMPHOCYTES # (AUTO) 0.2 X10'3 (1.1-4.8); LYMPHOCYTES % (AUTO) 3.3 % (21-51); MEAN CORPUSCULAR HEMOGLOBIN 31.3 PG (27.0-31.0); MEAN CORPUSCULAR HGB CONC 34.3 g/dL (33.0-36.5); MEAN CORPUSCULAR VOLUME 91.4 FL (78-98); MEAN PLATELET VOLUME 8.1 FL (7.4-10.4); MONOCYTES # (AUTO) 0.1 X10'3 (0-0.9); MONOCYTES % (AUTO) 1.4 % (2-12); NEUTROPHILS # (AUTO) 7.1 X10'3 (1.8-7.7); NEUTROPHILS % (AUTO) 95.3 % (42-75); PLATELET COUNT 275 X10'3 (140-440); RED BLOOD COUNT 3.43 X10'6 (4.20-5.60); RED CELL DISTRIBUTION WIDTH 14.7 % (11.5-14.5); WHITE BLOOD COUNT 7.4 X10'3 (4.5-11.0)
[2024-07-19 07:03] LABS: ALANINE AMINOTRANSFERASE 17 U/L (12-78); ALBUMIN 3.1 G/DL (3.4-5.0); ALBUMIN/GLOBULIN RATIO 0.9 (1.1-1.5); ALKALINE PHOSPHATASE 59 IU/L (46-116); ANION GAP 9 (8-16); ASPARTATE AMINO TRANSFERASE 14 U/L (10-37); BILIRUBIN,TOTAL 0.2 MG/DL (0.1-1.0); BLOOD UREA NITROGEN 32 MG/DL (7-18); CALCIUM 8.7 MG/DL (8.5-10.1); CHLORIDE 101 MMOL/L (99-107); CREATININE 0.78 MG/DL (0.40-0.90); GLUCOSE 182 MG/DL (70-104); PHOSPHORUS 3.8 MG/DL (2.3-4.5); SODIUM 136 MMOL/L (135-145); TOTAL CARBON DIOXIDE 26.1 MMOL/L (24-32); TOTAL PROTEIN 6.4 G/DL (6.4-8.2); eCRCL 52 ML/MIN; eGFR 72 ML/MIN
[2024-07-19] MEDS: furosemide 20 MG/2 ML vial IV SCH (14:03)
[2024-07-19] MEDS: guaiFENesin ER 600mg tablet PO SCH (21:58)
[2024-07-20] VITALS (11 sets, daily range): BP systolic 104–114; BP diastolic 46–66; PULSE 63–97; RESP 14–24; TEMP 97.4–97.7; O2SAT 89–96
[2024-07-20 06:49] LABS: BASOPHILS % (AUTO) 0 % (0-1); EOSINOPHILS % (AUTO) 0 % (0-6); HEMOGLOBIN 10.4 g/dl (12.0-16.0); LYMPHOCYTES # (AUTO) 0.3 X10'3 (1.1-4.8); LYMPHOCYTES % (AUTO) 4.8 % (21-51); MEAN CORPUSCULAR HEMOGLOBIN 30.6 PG (27.0-31.0); MEAN CORPUSCULAR HGB CONC 33.7 g/dL (33.0-36.5); MEAN CORPUSCULAR VOLUME 90.8 FL (78-98); MEAN PLATELET VOLUME 7.7 FL (7.4-10.4); MONOCYTES # (AUTO) 0.1 X10'3 (0-0.9); MONOCYTES % (AUTO) 1.1 % (2-12); NEUTROPHILS # (AUTO) 5.1 X10'3 (1.8-7.7); NEUTROPHILS % (AUTO) 94.1 % (42-75); PLATELET COUNT 278 X10'3 (140-440); RED BLOOD COUNT 3.41 X10'6 (4.20-5.60); RED CELL DISTRIBUTION WIDTH 14.9 % (11.5-14.5); WHITE BLOOD COUNT 5.4 X10'3 (4.5-11.0)
[2024-07-20 07:06] LABS: ALANINE AMINOTRANSFERASE 22 U/L (12-78); ALBUMIN/GLOBULIN RATIO 0.9 (1.1-1.5); ALKALINE PHOSPHATASE 53 IU/L (46-116); ANION GAP 6 (8-16); ASPARTATE AMINO TRANSFERASE 15 U/L (10-37); BILIRUBIN,TOTAL 0.3 MG/DL (0.1-1.0); BLOOD UREA NITROGEN 32 MG/DL (7-18); BUN/CREATININE RATIO 42.1 (10.0-20.0); CALCIUM 8.5 MG/DL (8.5-10.1); CHLORIDE 100 MMOL/L (99-107); CREATININE 0.76 MG/DL (0.40-0.90); GLUCOSE 163 MG/DL (70-104); PHOSPHORUS 3.9 MG/DL (2.3-4.5); POTASSIUM 3.9 MMOL/L (3.5-5.1); SODIUM 137 MMOL/L (135-145); TOTAL CARBON DIOXIDE 30.8 MMOL/L (24-32); TOTAL PROTEIN 6.2 G/DL (6.4-8.2); eCRCL 54 ML/MIN; eGFR 74 ML/MIN
[2024-07-20] MEDS ORDERED: GUAI600T45 PO (10:33)
[2024-07-20] MEDS ORDERED: FURO20TA4 PO (10:33)
[2024-07-20] MEDS ORDERED: PRED10TA23 PO (10:33)
[2024-07-20] MEDS ORDERED: APIX5TAB3 PO (10:33)
== END 2024-07-20 16:41 | disposition home health service (06) | DRG 291 ==
LOC: ER 13:31 → ED HOLD 17:36 → PCU 3S 23:58
PROVIDERS: ADMIT Internal Medicine; ATTEND Internal Medicine
PROC: 5A0935A Assistance with Respiratory Ventilation, Less than 24 Consecutive Hours, High Flow/Velocity Cannula (ICD-10-PCS; 2024-07-16)
PROC: B32T1ZZ Computerized Tomography (CT Scan) of Left Pulmonary Artery using Low Osmolar Contrast (ICD-10-PCS; principal; 2024-07-17)
PROC: B32G1ZZ Computerized Tomography (CT Scan) of Bilateral Vertebral Arteries using Low Osmolar Contrast (ICD-10-PCS; 2024-07-17)
PROC: B3201ZZ Computerized Tomography (CT Scan) of Thoracic Aorta using Low Osmolar Contrast (ICD-10-PCS; 2024-07-17)
PROC: B32S1ZZ Computerized Tomography (CT Scan) of Right Pulmonary Artery using Low Osmolar Contrast (ICD-10-PCS; 2024-07-17)
PROC: 5A0935A Assistance with Respiratory Ventilation, Less than 24 Consecutive Hours, High Flow/Velocity Cannula (ICD-10-PCS; 2024-07-17)
PROC: 5A0935A Assistance with Respiratory Ventilation, Less than 24 Consecutive Hours, High Flow/Velocity Cannula (ICD-10-PCS; 2024-07-18)
PROC: 5A0935A Assistance with Respiratory Ventilation, Less than 24 Consecutive Hours, High Flow/Velocity Cannula (ICD-10-PCS; 2024-07-19)
PROC: 5A0935A Assistance with Respiratory Ventilation, Less than 24 Consecutive Hours, High Flow/Velocity Cannula (ICD-10-PCS; 2024-07-20)
DX: I11.0 Hypertensive heart disease with heart failure (principal); I50.31 Acute diastolic (congestive) heart failure; J96.21 Acute and chronic respiratory failure with hypoxia; J44.1 Chronic obstructive pulmonary disease with (acute) exacerbation; I48.91 Unspecified atrial fibrillation; R56.9 Unspecified convulsions; I73.9 Peripheral vascular disease, unspecified; F41.9 Anxiety disorder, unspecified; I25.10 Atherosclerotic heart disease of native coronary artery without angina pectoris; E78.5 Hyperlipidemia, unspecified
CPT/HCPCS: 36415; 36600; 71045; 71275; 80053; 80061; 82803; 83036; 83605; 83735; 83880; 84100; 84145; 84443; 84484; 85018; 85025; 85379; 85610; 87040; 87081; 87502; 87503; 87811; 93005; 93306; 94640; 94664; 94668; 94760; 96361; 96365; 96375; 97116; 97161; 97530; 99285; A4615; G0378; J0696; J1940; J1956; J2919; J7030; Q9967

== ENCOUNTER 2024-09-26 20:03 | Inpatient (IN) | payer MEDICARE, BC ==
[~2024-09-26] VITALS: Ht 165.1 cm; Wt 58.5 kg
[~2024-09-26 20:03] MED LIST changes: -AMLO5TAB4 PO; +APIX5TAB3 PO; +BUDE10.27 INH; +FURO20TA4 PO; +GABA-1405 PO; +GUAI600T45 PO; -LISI1TAB51 PO; -MAGN400C PO; -POTA2TAB17 PO
[2024-09-26 20:13] VITALS: PULSE 119; RESP 13; O2SAT 99
[2024-09-26] MEDS: magnesium sulf-water 2g/50mL 50 ML IV ONE (20:31)
[2024-09-26 20:32] LABS: BASOPHILS # (AUTO) 0.1 X10'3 (0-0.2); BASOPHILS % (AUTO) 1.3 % (0-1); EOSINOPHILS # (AUTO) 0.1 X10'3 (0-0.9); EOSINOPHILS % (AUTO) 1.8 % (0-6); HEMOGLOBIN 13.3 g/dl (12.0-16.0); LYMPHOCYTES # (AUTO) 1.1 X10'3 (1.1-4.8); LYMPHOCYTES % (AUTO) 19.7 % (21-51); MEAN CORPUSCULAR HEMOGLOBIN 30.6 PG (27.0-31.0); MEAN CORPUSCULAR HGB CONC 34.1 g/dL (33.0-36.5); MEAN CORPUSCULAR VOLUME 89.7 FL (78-98); MEAN PLATELET VOLUME 8.1 FL (7.4-10.4); MONOCYTES # (AUTO) 0.3 X10'3 (0-0.9); NEUTROPHILS # (AUTO) 3.9 X10'3 (1.8-7.7); NEUTROPHILS % (AUTO) 71.2 % (42-75); PLATELET COUNT 283 X10'3 (140-440); RED BLOOD COUNT 4.35 X10'6 (4.20-5.60); WHITE BLOOD COUNT 5.5 X10'3 (4.5-11.0)
[2024-09-26] MEDS: methylPREDNISolone sod succ 125mg/2ml vial IV ONE (20:34)
[2024-09-26 20:43] VITALS: PULSE 113; RESP 18; O2SAT 95
--- NOTE | 2024-09-26 20:47 | RADIOLOGY REPORT ---
CHEST RADIOGRAPH Indication: Shortness a breath Technique: Single frontal view of the chest was obtained Comparison: DI CHEST,SINGLE VIEW on DOS: 07/16/24, DI CHEST,SINGLE VIEW on DOS: 05/16/23, CHEST,SINGLE VIEW on DOS: 01/19/21, CHEST,SINGLE VIEW on DOS: 01/29/20 FINDINGS: Lines and Tubes: None Lungs: No focal consolidation. Pleura: No effusion. No pneumothorax. Cardiomediastinal contours: Unremarkable Bones: No acute osseous abnormality. IMPRESSION: No acute cardiopulmonary disease.
[2024-09-26 20:54] LABS: ABG BASE EXCESS 2.3 mmol/L (-2.0-3.0); ABG HCO3 28.5 mmol/L (21.0-28.0); ABG OXYGEN SATURATION 94.9 % (94.0-98.0); ABG PH (T) 7.373 (7.350-7.450); ABG PO2 (T) 78.6 mmHg (83.0-108.0); ALLEN'S TEST POSITIVE; FCOHb 0.2 % (0.5-1.5); FHHb 5.1 % (0.0-5.0); FMetHb 0.1 % (0.0-1.5); FO2Hb 94.6 % (94.0-98.0); MODE MASK - BIPAP; RESPIRATORY RATE 12 b/min; TOTAL HEMOGLOBIN 13.8 G/dl (12.0-16.0)
[2024-09-26] MEDS: albuterol 2.5 MG/3 ML nebule CONTNEB PRN (20:56)
[2024-09-26 20:57] VITALS: PULSE 109; RESP 17; O2SAT 96
[2024-09-26] MEDS: azithromycin/NS 500mg/250ml 250 ML IV ONE (21:04)
[2024-09-26 21:11] LABS: ALANINE AMINOTRANSFERASE 18 U/L (12-78); ALBUMIN 3.7 G/DL (3.4-5.0); ALBUMIN/GLOBULIN RATIO 1.2 (1.1-1.5); ALKALINE PHOSPHATASE 75 IU/L (46-116); ANION GAP 8 (8-16); ASPARTATE AMINO TRANSFERASE 21 U/L (10-37); BILIRUBIN,TOTAL 0.3 MG/DL (0.1-1.0); BLOOD UREA NITROGEN 8 MG/DL (7-18); CALCIUM 8.7 MG/DL (8.5-10.1); CHLORIDE 100 MMOL/L (99-107); CREATININE 0.73 MG/DL (0.40-0.90); GLUCOSE 169 MG/DL (70-104); POTASSIUM 3.8 MMOL/L (3.5-5.1); SODIUM 139 MMOL/L (135-145); TOTAL CARBON DIOXIDE 30.6 MMOL/L (24-32); TOTAL PROTEIN 6.8 G/DL (6.4-8.2); eCRCL 57 ML/MIN; eGFR 77 ML/MIN
[2024-09-26 21:18] LABS: MAGNESIUM 1.8 MG/DL (1.5-2.4); PRO BRAIN NATRIURETIC PEPTIDE 1546 PG/ML (0-450)
[2024-09-26 21:58] VITALS: PULSE 103; RESP 18; O2SAT 99
--- NOTE | 2024-09-26 22:26 | Physician Documentation ---
History of Present Illness ~ Chief Complaint: Shortness of Breath Stated Complaint: RESPIRATORY Time Seen by MD: 20:06 Primary Medical Doctor: Shelbie LORD This is a 79-year-old female with a known history of COPD, CHF, who comes in for evaluation of shortness a breath. Normally on 3 L of oxygen at home was found to be 70% oxygen saturation on her baseline oxygen. No obvious trigger provocation. No particular palliating or aggravating factors, similar to prior COPD exacerbation. Received DuoNeb with a route, with only minimal improvement. Denies chest pain. History, review of systems, and physical examination are limited secondary to acuity of clinical condition Medication Reconciliation Allergies: Coded Allergies: No Known Allergies (Unverified , 09/26/24) Scheduled Apixaban (Eliquis), 5 MG PO BID Aspirin (Aspirin EC), 1 TAB PO DAILY, (Reported) Atorvastatin Calcium* (Lipitor*), 1 TABLET PO HS, (Reported) Betamethasone/Propylene Glyc (Betamethasone Dp Aug 0.05% Oin), 1 APPLIC TOP Q12H, (Reported) Budesonide/Formoterol Fumarate (Budesonide-Formoterol 80-4.5), 1 INH BID, (Reported) Buspirone Hcl* (Buspar*), 1 TAB PO TID, (Reported) Calcium Carbonate/Vitamin D3 (Calcium 600 + Vit D3 Tablet), 1 TAB PO DAILY, (Reported) Cholecalciferol (Vitamin D3) (Vitamin D3), 2,000 UNIT PO DAILY, (Reported) Clopidogrel Bisulfate (Plavix), 75 MG PO DAILY, (Reported) Cyanocobalamin (Vitamin B-12), 1 TAB PO DAILY, (Reported) Fish Oil/Dha/Epa (Fish Oil 1,200 Mg Fish Oil), 1 EACH PO DAILY, (Reported) Furosemide (Furosemide), 1 TAB PO DAILY Gabapentin (Gabapentin), 1 TAB PO DAILY, (Reported) Guaifenesin (Mucinex), 1,200 MG PO Q12H Scheduled PRN Lorazepam (Ativan), 1 TAB PO Q12H PRN PRN for anxiety, (Reported) Nitroglycerin SL* (Nitrostat SL*), 1 TAB SL Q5MIN PRN for Chest pain Q5min PRNx3-call MD, (Reported) Past Medical History Past Medical History: Seizures, *CARDIOVASCULAR*, Congestive Heart Failure, Hypertension, COPD, Deep Vein Thrombosis Past Surgical History: tubal ligation Alcohol Use: Occasionally Drug Use: none Lives with: Family Lives In: Home Review of Systems ROS 10 point review of systems was performed and unless noted above in HPI is negative for acute process/complaint. Physical Exam Vital Signs: Temperature: 98.6, Source: Oral, Heart Rate: 103, Respiratory Rate: 18, BP: 178/101, Pulse Oximetry: 99, Weight: 58.640 Oxygen Flow Rate: 7.0 Physical Exam GENERAL: Awake, alert, oriented, GCS 15, no apparent distress, non-toxic appearing, answers questions, follows commands appropriately. Examined immediately upon arrival in bed 8. HEENT: Atraumatic, normocephalic, pupils equal, extraocular muscles intact, sclerae anicteric, mucus membranes moist, oropharynx is clear, no stridor. NECK: supple, full active range of motion, trachea midline, no thyromegaly, no lymphadenopathy, no JVD. CARDIOVASCULAR: Tachycardic and regular rate/rhythm, no murmurs/gallops/rubs, Pulses are 2+ in all extremities and symmetric. Capillary refill less than 2 seconds. PULMONARY: Markedly labored, Guppy breathing, tripoding, decreased air movement , moderate respiratory distress, speaking in one word sentences, faint expiratory inspiratory wheezing, no ronchi, no rales, marked accessory muscle use. GASTROINTESTINAL: Soft, non-tender, non-distended, normal active bowel sounds, no organomegaly, no pulsatile masses, no CVA tenderness. NEUROLOGIC: Lucid with normal mental status. Normal facial symmetry. Moves all extremities symmetrically and with purpose. No truncal ataxia. Speech is fluid without evidence of dysarthria or aphasia, no focal deficits appreciated. MUSCULOSKELETAL: There is full range of motion of all extremities. There is no joint pain or joint swelling or joint erythema. There is no muscle pain or tenderness or swelling. EXTREMITIES: warm, well-perfused, no cyanosis, no clubbing, no edema, no acute deformities. Skin: warm, dry, no rashes or lesions, no jaundice, no petechiae orpurpura. No ecchymosis. PSYCHIATRIC: Understandably anxious affect, normal insight, normal co ncentration. Focused exam: [] Progress Results/Orders Results/Orders Orders - OJ EDWARDS DO Electrocardiogram (09/26/24 20:07) Abg (Arterial Blood Gas) (09/26/24 20:07) Chest,Single View (09/26/24 20:07) Monitor (09/26/24 20:07) Saline Lock (09/26/24 20:07) Hs Troponin I W Calculations (09/26/24 22:07) Hs Troponin I W Calculations (09/26/24 23:07) Bipap/Cpap (09/26/24 ) Albuterol 2.5mg/3ml Nebule (Proventil 2. (09/26/24 20:20) Page Hospitalist (09/26/24 22:21) Fill Out Med Reconciliation (09/26/24 22:21) Completed Orders - OJ EDWARDS DO Cbc/Diff (09/26/24 20:07) Chest,Single View (09/26/24 20:07) PBNP (09/26/24 20:07) MG (09/26/24 20:07) Azithromycin/Ns 500mg/250ml (Zithromax/N (09/26/24 20:10) CMP (09/26/24 20:07) Hs Troponin I W Calculations (09/26/24 20:07) Methylprednisolone Sod Succ (Solumedrol (09/26/24 20:10) Magnesium Sulf-Water 2g/50ml (Magnesium (09/26/24 20:10) Medications Received in ER Medications (Trade) Dose Ordered Sig/Larry Route PRN Reason Start Time Stop Time Status Last Admin Dose Admin Azithromycin 250 ml @ 250 mls/hr ONCE ONCE IV 09/26/24 20:10 09/26/24 21:09 DC 09/26/24 21:04 250 MLS/HR (SoluMEDROL 125mg inj) 125 mg ONCE ONCE IV 09/26/24 20:10 09/26/24 20:11 DC 09/26/24 20:34 125 MG Magnesium Sulfate 50 ml @ 100 mls/hr ONCE ONCE IV 09/26/24 20:10 09/26/24 20:39 DC 09/26/24 20:31 100 MLS/HR (Proventil 2.5 MG/3ML nebule) 10 mg Q1H PRN CONTNEB SOB or wheezing 09/26/24 20:20 09/26/24 20:56 10 MG Vital Signs 09/26/24 09/26/24 09/26/24 09/26/24 20:06 20:09 20:09 20:13 Temp 98.6 Pulse 135 121 119 Resp 24 24 13 13 B/P (MAP) 178/101 178/101 (126) Pulse Ox 98 98 98 99 O2 Delivery Non-Rebreather O2 Flow Rate 15.0 15.0 15 FiO2 N/A 35 09/26/24 09/26/24 09/26/24 09/26/24 20:43 20:57 20:57 20:58 Pulse 113 109 Resp 18 17 24 18 B/P (MAP) Pulse Ox 95 96 O2 Flow Rate 7.0 FiO2 35 09/26/24 09/26/24 21:35 21:58 Pulse 103 Resp 18 Pulse Ox 99 99 O2 Delivery BiPAP+ FiO2 N/A Laboratory Tests Test 09/26/24 20:17 09/26/24 20:48 White Blood Count 5.5 Red Blood Count 4.35 Hemoglobin 13.3 Hematocrit 39.0 Mean Corpuscular Volume 89.7 Mean Corpuscular Hemoglobin 30.6 Mean Corpuscular Hemoglobin Concent 34.1 Red Cell Distribution Width 14.0 Platelet Count 283 Mean Platelet Volume 8.1 Neutrophils (%) (Auto) 71.2 Lymphocytes (%) (Auto) 19.7 L Monocytes (%) (Auto) 6.0 Eosinophils (%) (Auto) 1.8 Basophils (%) (Auto) 1.3 H Neutrophils # (Auto) 3.9 Lymphocytes # (Auto) 1.1 Monocytes # (Auto) 0.3 Eosinophils # (Auto) 0.1 Basophils # (Auto) 0.1 CBC Comment Sodium Level 139 Potassium Level 3.8 Chloride Level 100 Carbon Dioxide Level 30.6 Anion Gap 8 Blood Urea Nitrogen 8 Creatinine 0.73 Estimated GFR/1.73 m2 77 BUN/Creatinine Ratio 11.0 Glucose Level 169 H Calcium Level 8.7 Magnesium Level 1.8 Total Bilirubin 0.3 Aspartate Amino Transf (AST/SGOT) 21 Alanine Aminotransferase (ALT/SGPT) 18 Alkaline Phosphatase 75 Troponin I High Sensitivity 41 Pro-B-Type Natriuretic Peptide 1546 H Total Protein 6.8 Albumin 3.7 Globulin 3.1 Albumin/Globulin Ratio 1.2 Chemistry Comments Blood Gas Specimen Type Arterial Blood Gas Puncture Site Rr O2 Saturation 94.9 Arterial Blood pH (Temp corrected) 7.373 Arterial Blood pCO2 (Temp correct) 50.0 H Arterial Blood pO2 (Temp corrected) 78.6 L Arterial Blood PO2/FiO2 Ratio 2.25 Arterial Blood HCO3 28.5 H Arterial Blood Base Excess 2.3 Arterial Blood Oxyhemoglobin 94.6 Arterial Blood Carboxyhemoglobin 0.2 L Arterial Blood Methemoglobin 0.1 Arterial Blood Deoxyhemoglobin 5.1 H Yomi Test Positive Blood Gas Hemoglobin 13.8 Blood Gas Temperature 37.0 Blood Gas Set Respiration Rate 12 Blood Gas Modality Mask - bipap FiO2 35.0 Blood Gas Critical Value Called To Oj edwards do Medical Decision Making Findings Facility Status: ED Holds, [facility] process The plan was discussed with the patient, who demonstrates clear understanding of the plan and is in agreement with the plan unless otherwise noted in the chart. All questions have been answered, all concerns were addressed unless otherwise documented. I was available throughout their ED stay for frequent reassessment and questions. Differential Diagnoses (considered and possible or likely): [CHF, COPD, combined process, ACS, pneumonia, occult bacteremia, COVID, influenza, RSV, upper respiratory infection in the top of the viruses, bronchospasm, less likely PE] ??Differential Diagnoses (considered and unlikely, not requiring evaluation currently): [See above] MDM Data Please see [facility] for the following: Independent Historians and external Records Review. Historian: [Patient] Independent Historians: ?[EMS] Medication Management: [Reviewed medication list] Social History and determinants: [Reviewed] Please see the body of the note for the following: Any independent interpretations of ECG, imaging studies. All vitals signs/haemodynamics, ordered tests were independently reviewed and interpreted by myself. Nursing triage complaint and vitals reviewed, additional nursing notes were reviewed as available and I agree unless otherwise noted or documented in contradiction in the chart Vital Signs: Independently reviewed Labs: Independently interpreted Imaging: Independently interpreted Old Medical Records: Independently reviewed, see HPI for relevant summary and information Pulse Oximetry: [70% on 3 L] interpreted as [severe hypoxia] by me [Care Transition Mgr: Tachycardic Rate, Regular rhythm, no ectopy, sinus tachycardia reviewed and interpreted by me] Additionally notably showing: [Requires BiPAP for appropriate oxygenation and ventilation. Laboratory workup notable for elevated BNP. Chest x-ray is unremarkable.] Tests considered but not ordered include: [CT angiography for PE evaluation can be done on an inpatient basis if the index of suspicion that is sufficient with a high] Social Determinants of Health Impact: Patient was evaluated in [facility], [facility] [place] to healthcare due to below par ratio of patient to medical providers. [] Comorbid Conditions Impacting Present Evaluation and Care/Treatment: [COPD, CHF] Management Discussions with other Healthcare Providers: [Hospitalist regarding admission] Treatment and Disposition Medication Management (Given or considered): []. See EMR for details Consideration for Hospitalization/Escalation/Deescalation of Care: Admission for observation has been considered, and appears to be necessary for further management of her hypoxic respiratory failure ?ED Course:?[Improved and stable on BiPAP] ?Shared decision making:?[] Code status:?FULL Please see the full Electronic Medical Record for full details of nursing documentation, medications list, other records of complete past medical history and conditions, vital signs, laboratory studies, and any radiologic study interpretations by radiologists. Portions of this note were completed using Pic[employer] dictation software and as a result there may exist minor errors in spelling. I have reviewed elements of past family and social history and agree as included in note. Departure Disposition: ADMITTED INPATIENT Impression: Primary Impression: Acute hypoxic respiratory failure Additional Impressions: CHF (congestive heart failure) COPD with hypoxia COPD with exacerbation Condition: Improved Referrals: NO PRIMARY CARE PROVIDER (PCP) Critical Care Note Critical Care Note CRITICAL CARE TIME: [ 40] minutes Treatments/Evaluations: Close monitoring and treatment of unstable vital signs, cardiorespiratory, and neurologic status, while maintaining tight balance of fluid, respiratory, and cardiac interventions. This time includes discussing the case with the patient and the patients family. This time does not include all procedures stated elsewhere in this record. This time also includes reviewing old records, labs and radiological studies. This time includes examining and re- examining the patient. Additionally, this time also includes arranging care with admitting and consulting physicians. Signature Scribe Signature: No scribe Attestation: This note accurately reflects clinical decisions, work performed by myself, Oj Edwards, OJ SÁNCHEZ DO September 26, 2024 22:26
[2024-09-26 22:45] VITALS: PULSE 106; RESP 22; O2SAT 97
[2024-09-26] MEDS: LORazepam 1 MG tablet PO ONE (23:52)
[2024-09-26] MEDS: furosemide 10 MG/1 ML 10ml inj IV ONE (23:53)
[2024-09-27] VITALS (17 sets, daily range): BP systolic 101–121; BP diastolic 57–73; PULSE 83–130; RESP 16–26; TEMP 97.6–97.9; O2SAT 90–96
[2024-09-27] MEDS: LORazepam 2 mg/ml vial IV ONE (00:04)
[2024-09-27] MEDS ORDERED: magnesium Cl slow-release 64mg tablet PO PRN (03:10)
[2024-09-27] MEDS ORDERED: magnesium sulf-water 2g/50mL 50 ML IV PRN (03:10)
[2024-09-27] MEDS ORDERED: magnesium sulf-water 4G/100mL 100 ML IV PRN (03:10)
[2024-09-27] MEDS ORDERED: potassium Cl 20 mEq SR tablet PO PRN ×2 (03:10)
[2024-09-27] MEDS ORDERED: potassium Cl 40MEQ/1/2NS 520ml 520 ML IV PRN (03:10)
--- NOTE | 2024-09-27 05:44 | HISTORY AND PHYSICAL-Residence ---
History & Physical Providers to CC Resident Creating Document: UMMMERRITTKEIRA ~ History of Present Illness Primary Medical Doctor: Shelbie GARNER Reason for Admit\Complaint: Shortness of breaths History of Present Illness 79-year-old female with a history of COPD on 4 L hypertension and AFib fibrillation presents to the ED for shortness of breath. Patient started to experience shortness of breath for the last few hours and his O2 saturation was 70 %. Patient presenting to the ED who was brought distress restarted on BiPAP and given IV steroids as well as azithromycin. Patient's symptoms started to improve Allergies: Coded Allergies: No Known Allergies (Unverified , 09/26/24) Home Medications Home Medications Active Furosemide 20 Mg Tablet 1 Tab PO DAILY 30 Days Mucinex (Guaifenesin) 600 Mg Tablet.sa 1,200 Mg PO Q12H 30 Days Eliquis (Apixaban) 5 Mg Tablet 5 Mg PO BID 30 Days Reported Budesonide-Formoterol 80-4.5 (Budesonide/Formoterol Fumarate) 80 Mcg-4.5 Mcg/Actuation Hfa.aer.ad 1 INH BID Gabapentin 600 Mg Tablet 1 Tab PO DAILY Aspirin EC (Aspirin) 81 Mg Tablet.dr 1 Tab PO DAILY 30 Days Ativan (Lorazepam) 0.5 Mg Tablet 1 Tab PO Q12H PRN PRN 30 Days Buspar* (Buspirone HCl) 10 Mg Tablet 1 Tab PO TID 30 Days Betamethasone Dp Aug 0.05% Oin (Betamethasone/Propylene Glyc) 0.05 % Oint...g. 1 Applic TOP Q12H 30 Days Plavix (Clopidogrel Bisulfate) 75 Mg Tablet 75 Mg PO DAILY Do not stop medication unless instructed by prescriber. Vitamin B-12 (Cyanocobalamin) 1,000 Mcg Tablet 1 Tab PO DAILY Nitrostat SL* (Nitroglycerin) 0.4 Mg Tablet 1 Tab SL Q5MIN PRN Vitamin D3 (Cholecalciferol (Vitamin D3)) 2,000 Unit Tablet 2,000 Unit PO DAILY Calcium 600 + Vit D3 Tablet (Calcium Carbonate/Vitamin D3) 1 Each Tablet 1 Tab PO DAILY Fish Oil 1,200 Mg Fish Oil (Fish Oil/Dha/Epa) 1 Each Capsule 1 Each PO DAILY Lipitor* (Atorvastatin Calcium) 20 Mg Tablet 1 Tablet PO HS Past Medical History Past Medical History COPD Hypertension AFib Past Social History Social History Comment Tobacco abuse, current smoker Smoking: Quit less than 1 year Alcohol Use: Occasionally Drug Use: None Lives with: Family Lives In: Home Exam Vitals: Vital Signs Date Time Temp Pulse Resp B/P (MAP) Pulse Ox O2 Delivery O2 Flow Rate FiO2 09/27/24 04:37 102 18 127/73 (91) 98 30.0 09/27/24 03:04 30 09/26/24 21:35 BiPAP+ 09/26/24 20:06 98.6 General: General: Awake and Alert, on BiPAP HEENT: Conjunctiva pink, Sclera clear, Mucus Membranes moist. Neck: Supple without masses and tenderness. Resp: Decreased breath sounds bilaterally. Heart: Regular Rate and rhythm, normal S1 and S2 without murmur, rub or gallop. Abdomen: Soft and non tender no organomegaly Extremities: No cyanosis,clubbing or edema. Skin: Warm and Dry. Diagnostic Data Last Recorded Lab Results: 09/26/24201609/26/242016 Advance Care Planning Advanced Care plannin - 30 Minutes Additional Plan Acute on chronic hypoxic respiratory failure Acute COPD exacerbation Normally wears 4 L baseline. Continue BiPAP till morning. Patient is supposed to her PAP machine at night but due to her claustrophobia does not wear Chest x-ray clear. Continue azithromycin x3 days, prednisone, and DuoNeb p.r.n. HFpEF Elevated troponin secondary to demand ischemia EF 60-65% Continue Lasix 20 mg daily Hypertension Lisinopril 20 mg Atrial fibrillation, rate control Continue Eliquis 5 mg b.i.d. Code Status: Full code DVT prophylaxis: Eliquis Nutrition: Regular Prognosis: Fair Disposition: Continue medical management Merritt Alfaro MD Internal Medicine Resident PGY-3 Pt was seen and evaluated Agree with the assessment and plan as documented Date of Service: September 27, 2024 Billing Provider: ANDREY SHAFFER MD, TOBIN, RES September 27, 2024 05:44 ANDREY SHAFFER MD September 27, 2024 07:47
[2024-09-27] MEDS: lisinopril 20mg tablet PO SCH (07:54)
[2024-09-27] MEDS: K and/or MAG REPLACEMENT MC SCH (07:54)
[2024-09-27] MEDS: azithromycin 250mg tablet PO SCH (07:55)
[2024-09-27] MEDS: furosemide 20MG tablet PO SCH (07:55)
[2024-09-27] MEDS: predniSONE 20 mg tablet PO SCH (07:55)
[2024-09-27] MEDS: apixaban 5mg tablet PO SCH (07:57)
[2024-09-27] MEDS: aspirin 81mg, enteric-coated 1 TAB TABLET.DR PO SCH (07:58)
[2024-09-27] MEDS: atorvastatin 20mg tablet PO SCH (07:58)
--- NOTE | 2024-09-27 08:02 | ELECTROCARDIOGRAPH REPORT ---
[facility] Test Date: 2024-09-26 Test Time: 20:09:36 Pat Name: LEANDRA SWAN Department: EMERGENCY ROOM Room: ED 8 1 Gender: F Administration Intern: : 1945 Requested By: GRIFFIN LINN Order Number: [id number] Reading MD: Dr. Dmitriy Lao Measurements Intervals [place] Rate: 119 P: 94 TN: 121 QRS: 80 QRSD: 86 T: 53 QT: 323 QTc: 455 Interpretive Statements Sinus tachycardia Baseline wander in lead(s) V6 Electronically Signed On 09-27-2024 11:00:[address] Dmitriy Lao Please click the below link to view image of tracing.
[2024-09-27 08:27] LABS: BASOPHILS % (AUTO) 0.4 % (0-1); EOSINOPHILS % (AUTO) 0.1 % (0-6); HEMATOCRIT 39.1 % (35.0-45.0); HEMOGLOBIN 13.4 g/dl (12.0-16.0); LYMPHOCYTES # (AUTO) 0.5 X10'3 (1.1-4.8); LYMPHOCYTES % (AUTO) 11.9 % (21-51); MEAN CORPUSCULAR HEMOGLOBIN 30.5 PG (27.0-31.0); MEAN CORPUSCULAR HGB CONC 34.3 g/dL (33.0-36.5); MEAN CORPUSCULAR VOLUME 88.9 FL (78-98); MEAN PLATELET VOLUME 8.1 FL (7.4-10.4); MONOCYTES % (AUTO) 0.7 % (2-12); NEUTROPHILS # (AUTO) 3.4 X10'3 (1.8-7.7); NEUTROPHILS % (AUTO) 86.9 % (42-75); PLATELET COUNT 303 X10'3 (140-440); RED CELL DISTRIBUTION WIDTH 13.8 % (11.5-14.5); WHITE BLOOD COUNT 3.9 X10'3 (4.5-11.0)
[2024-09-27 08:39] LABS: APTT 31 SECONDS (22-32); PROTHROMBIN TIME 10.5 SECONDS (9.0-12.0)
[2024-09-27 08:45] LABS: ALANINE AMINOTRANSFERASE 18 U/L (12-78); ALBUMIN 3.8 G/DL (3.4-5.0); ALKALINE PHOSPHATASE 77 IU/L (46-116); ANION GAP 8 (8-16); ASPARTATE AMINO TRANSFERASE 19 U/L (10-37); BILIRUBIN,TOTAL 0.3 MG/DL (0.1-1.0); BLOOD UREA NITROGEN 13 MG/DL (7-18); BUN/CREATININE RATIO 17.8 (10.0-20.0); CALCIUM 9.4 MG/DL (8.5-10.1); CHLORIDE 98 MMOL/L (99-107); CREATININE 0.73 MG/DL (0.40-0.90); GLUCOSE 132 MG/DL (70-104); POTASSIUM 3.9 MMOL/L (3.5-5.1); SODIUM 137 MMOL/L (135-145); TOTAL CARBON DIOXIDE 31.3 MMOL/L (24-32); TOTAL PROTEIN 7.6 G/DL (6.4-8.2); eCRCL 57 ML/MIN; eGFR 77 ML/MIN
[2024-09-27 09:10] LABS: FREE T4 (FREE THYROXINE) 1.16 NG/DL (0.73-1.40); THYROID STIMULATING HORMONE 1.17 ulU/ml (0.34-4.50)
[2024-09-27] MEDS: furosemide 20 MG/2 ML vial IV SCH (11:06)
[2024-09-27] MEDS: methylPREDNISolone sod succ/PF 40mg inj. IV SCH (11:07)
[2024-09-27] MEDS: ipratropium/albuterol 3ml nebule NEB PRN (15:50)
[2024-09-27] MEDS: metoprolol tartrate 1mg/ml inj IV SCH (16:12)
[2024-09-27] MEDS: albuterol 2.5 MG/3 ML nebule NEB ONE (16:45)
[2024-09-27] MEDS: ipratropium/albuterol 3ml nebule NEB SCH (19:51)
[2024-09-27] MEDS: gabapentin 300mg capsule PO ONE (20:36)
[2024-09-27] MEDS: busPIRone 5mg tablet PO SCH (20:36)
[2024-09-28] VITALS (18 sets, daily range): BP systolic 89–123; BP diastolic 48–64; PULSE 80–113; RESP 18–25; TEMP 97.3–98.1; O2SAT 86–98
[2024-09-28] MEDS ORDERED: gabapentin 300mg capsule PO SCH (08:00)
[2024-09-28 08:18] LABS: BASOPHILS % (AUTO) 0.1 % (0-1); EOSINOPHILS % (AUTO) 0 % (0-6); HEMATOCRIT 37.6 % (35.0-45.0); HEMOGLOBIN 12.6 g/dl (12.0-16.0); LYMPHOCYTES # (AUTO) 0.4 X10'3 (1.1-4.8); MEAN CORPUSCULAR HEMOGLOBIN 29.9 PG (27.0-31.0); MEAN CORPUSCULAR HGB CONC 33.4 g/dL (33.0-36.5); MEAN CORPUSCULAR VOLUME 89.6 FL (78-98); MEAN PLATELET VOLUME 8.5 FL (7.4-10.4); MONOCYTES # (AUTO) 0.2 X10'3 (0-0.9); MONOCYTES % (AUTO) 2.9 % (2-12); NEUTROPHILS # (AUTO) 6.2 X10'3 (1.8-7.7); PLATELET COUNT 303 X10'3 (140-440); RED BLOOD COUNT 4.19 X10'6 (4.20-5.60); RED CELL DISTRIBUTION WIDTH 14.3 % (11.5-14.5); WHITE BLOOD COUNT 6.8 X10'3 (4.5-11.0)
[2024-09-28 08:33] LABS: ALANINE AMINOTRANSFERASE 18 U/L (12-78); ALBUMIN 3.6 G/DL (3.4-5.0); ALBUMIN/GLOBULIN RATIO 1.2 (1.1-1.5); ALKALINE PHOSPHATASE 67 IU/L (46-116); ANION GAP 8 (8-16); ASPARTATE AMINO TRANSFERASE 15 U/L (10-37); BILIRUBIN,TOTAL 0.2 MG/DL (0.1-1.0); BLOOD UREA NITROGEN 43 MG/DL (7-18); BUN/CREATININE RATIO 37.1 (10.0-20.0); CALCIUM 8.9 MG/DL (8.5-10.1); CHLORIDE 99 MMOL/L (99-107); CREATININE 1.16 MG/DL (0.40-0.90); GLUCOSE 131 MG/DL (70-104); MAGNESIUM 2.3 MG/DL (1.5-2.4); PHOSPHORUS 5.6 MG/DL (2.3-4.5); POTASSIUM 3.9 MMOL/L (3.5-5.1); SODIUM 139 MMOL/L (135-145); TOTAL PROTEIN 6.5 G/DL (6.4-8.2); eCRCL 36 ML/MIN; eGFR 45 ML/MIN
[2024-09-28] MEDS: methylPREDNISolone sod succ/PF 40mg inj. IV SCH (13:44)
[2024-09-28] MEDS: guaiFENesin ER 600mg tablet PO SCH (15:33)
--- NOTE | 2024-09-28 20:22 | PROGRESS NOTE- Residence ---
Progress Note - Resident Providers to CC Resident Creating Document: KEESHA RILEY RES ~ Antibiotic Timeout Antibiotic Ordered?: No Subjective Seen and examined the patient at bedside. Complaining of shortness of breathe. Not improving much Objective Vital Signs Date Time Temp Pulse Resp B/P (MAP) Pulse Ox O2 Delivery O2 Flow Rate FiO2 09/28/24 19:47 101 20 Nasal Cannula 5.0 09/28/24 19:40 92 40 09/28/24 15:00 97.7 105/56 (72) Result Diagram: 09/28/24 0713 09/28/24 0713 General: Awake and Alert, on BiPAP HEENT: Conjunctiva pink, Sclera clear, Mucus Membranes moist. Neck: Supple without masses and tenderness. Resp: Decreased breath sounds bilaterally. Bilateral wheezing present. Bilateral basal crepitations are present. Heart: Regular Rate and rhythm, normal S1 and S2 without murmur, rub or gallop. Abdomen: Soft and non tender no organomegaly Extremities: No cyanosis,clubbing or edema. Skin: Warm and Dry. Coagulation Studies Laboratory Tests Test 09/27/24 08:12 Prothrombin Time 10.5 SECONDS (9.0-12.0) INR International Normalized Ratio 1.0 INR Activated Partial Thromboplast Time 31 SECONDS (22-32) Coagulation Comments Advance Care Planning Advanced Care plannin - 30 Minutes Assessment Assessment 79-year-old female with a history of COPD on 4 L hypertension and AFib fibrillation presents to the ED for shortness of breath. Patient started to experience shortness of breath for the last few hours and his O2 saturation was 70 %. Patient presenting to the ED who was brought distress restarted on BiPAP and given IV steroids as well as azithromycin. Patient's symptoms started to improve Plan Plan Acute on chronic hypoxic respiratory failure Acute COPD exacerbation Normally wears 4 L baseline. Continue BiPAP till morning. Patient is supposed to her PAP machine at night but due to her claustrophobia does not wear Chest x-ray clear. Continue azithromycin x3 days, prednisone, and DuoNeb p.r.n. On 09/28/2024: Patient is still pretty tight the shortness of breathe and COPD. On prepped the dose of methylprednisolone to 80 mg q.6h IV. We will continue ipratropium albuterol nebulization q.4h scheduled and q.2h p.r.n. discontinued azithromycin. Continuing Lasix of 20 mg b.i.d. started on Mucinex b.i.d. HFpEF Elevated troponin secondary to demand ischemia EF 60-65% Continue Lasix 20 mg daily Hypertension Continue Lisinopril 20 mg p.o. daily Atrial fibrillation, rate control Continue Eliquis 5 mg b.i.d. No new episodes Code Status: Full code DVT prophylaxis: Eliquis Nutrition: Regular Prognosis: Fair Disposition: Continue medical management Keesha Riley MD Internal Medicine Resident PGY-1 Date of Service: Sep 28, 2024 Billing Provider: JESUSITA STERLING MD Common Visit Codes: [id number] INP/OBS CARE(HIGH) KEESHA RILEY, RES Sep 28, 2024 20:22 JESUSITA STERLING MD Sep 28, 2024 21:12
[2024-09-28] MEDS: gabapentin 300mg capsule PO SCH (20:43)
[2024-09-29] VITALS (25 sets, daily range): BP systolic 90–137; BP diastolic 48–85; PULSE 76–110; RESP 17–24; TEMP 97–98.6; O2SAT 91–99
[2024-09-29 07:19] LABS: BASOPHILS % (AUTO) 0 % (0-1); EOSINOPHILS % (AUTO) 0 % (0-6); HEMOGLOBIN 11.7 g/dl (12.0-16.0); LYMPHOCYTES # (AUTO) 0.3 X10'3 (1.1-4.8); LYMPHOCYTES % (AUTO) 3.9 % (21-51); MEAN CORPUSCULAR HEMOGLOBIN 30.1 PG (27.0-31.0); MEAN CORPUSCULAR HGB CONC 33.5 g/dL (33.0-36.5); MEAN PLATELET VOLUME 8.6 FL (7.4-10.4); MONOCYTES # (AUTO) 0.1 X10'3 (0-0.9); MONOCYTES % (AUTO) 0.8 % (2-12); NEUTROPHILS # (AUTO) 6.9 X10'3 (1.8-7.7); NEUTROPHILS % (AUTO) 95.3 % (42-75); PLATELET COUNT 272 X10'3 (140-440); RED BLOOD COUNT 3.88 X10'6 (4.20-5.60); RED CELL DISTRIBUTION WIDTH 14.1 % (11.5-14.5); WHITE BLOOD COUNT 7.2 X10'3 (4.5-11.0)
[2024-09-29 07:29] LABS: ALANINE AMINOTRANSFERASE 17 U/L (12-78); ALBUMIN 3.3 G/DL (3.4-5.0); ALBUMIN/GLOBULIN RATIO 1.2 (1.1-1.5); ALKALINE PHOSPHATASE 61 IU/L (46-116); ANION GAP 6 (8-16); ASPARTATE AMINO TRANSFERASE 17 U/L (10-37); BILIRUBIN,TOTAL 0.2 MG/DL (0.1-1.0); BLOOD UREA NITROGEN 49 MG/DL (7-18); BUN/CREATININE RATIO 53.3 (10.0-20.0); CALCIUM 8.5 MG/DL (8.5-10.1); CHLORIDE 99 MMOL/L (99-107); CREATININE 0.92 MG/DL (0.40-0.90); GLUCOSE 172 MG/DL (70-104); MAGNESIUM 2.4 MG/DL (1.5-2.4); PHOSPHORUS 4.4 MG/DL (2.3-4.5); POTASSIUM 4.2 MMOL/L (3.5-5.1); SODIUM 139 MMOL/L (135-145); TOTAL CARBON DIOXIDE 33.9 MMOL/L (24-32); TOTAL PROTEIN 6.1 G/DL (6.4-8.2); eCRCL 45 ML/MIN; eGFR 59 ML/MIN
--- NOTE | 2024-09-29 16:12 | PROGRESS NOTE- Residence ---
Progress Note - Resident Providers to CC Resident Creating Document: ABDELRAHMAN FORD RES ~ Antibiotic Timeout Antibiotic Ordered?: No Subjective Patient seen and examined at bedside. She is dysneic and pretty short of breath, says she has just coughed and that's gotten her sob. Recommended that she uses BIPAP PRN whenever she can, and try to see if she can tolerate it, also discussed with her the benefits of using it, she understands and agrees to try. She hasn't been able to use it over night or during the day as she states it makes her feel claustrophobic and suffocated. Objective Vital Signs Date Time Temp Pulse Resp B/P (MAP) Pulse Ox O2 Delivery O2 Flow Rate FiO2 09/29/24 12:40 104 22 95 09/29/24 12:00 97.7 110/48 (68) Nasal Cannula 5.0 09/29/24 11:56 36 Result Diagram: 09/29/24 0652 09/29/24 0652 General: Awake and Alert, on 5 lt NC HEENT: Conjunctiva pink, Sclera clear, Mucus Membranes moist. Neck: Supple without masses and tenderness. Resp: Decreased breath sounds bilaterally. Bilateral rhonchi and basal crepts. Heart: Regular Rate and rhythm, normal S1 and S2 without murmur, rub or gallop. Abdomen: Soft and non tender no organomegaly Extremities: No cyanosis,clubbing or edema. Skin: Warm and Dry. Coagulation Studies Laboratory Tests Test 09/27/24 08:12 Prothrombin Time 10.5 SECONDS (9.0-12.0) INR International Normalized Ratio 1.0 INR Activated Partial Thromboplast Time 31 SECONDS (22-32) Coagulation Comments Assessment Assessment 79-year-old female with a history of COPD on 4 L hypertension and AFib fibrillation presents to the ED for shortness of breath. Plan Plan Acute on chronic hypoxic respiratory failure Acute COPD exacerbation Normally wears 4 L baseline. Continue BiPAP till morning. Patient is supposed to her PAP machine at night but due to her claustrophobia does not wear Chest x-ray clear. Continue azithromycin x3 days, prednisone, and DuoNeb p.r.n. On 09/28/2024: Patient is still pretty tight the shortness of breathe and COPD. On prepped the dose of methylprednisolone to 80 mg q.6h IV. We will continue ipratropium albuterol nebulization q.4h scheduled and q.2h p.r.n. discontinued azithromycin. Continuing Lasix of 20 mg b.i.d. started on Mucinex b.i.d. 09/29/2024: She hasn't used BIPAP over night or during the day, she says she is not able to tolerate it as it makes her claustrophobic and suffocated. Recommended to use BIPAP whenever possible as she gets pretty short of breath, she agrees to trying it Continue breathing treatments and steroids PT to work with her, CM talked to her and she wants to go home, she lives in her home and has her daughter and son living with her to help her, she does not want to go to rehab, wants to go home when ready HFpEF Elevated troponin secondary to demand ischemia EF 60-65% Continue Lasix 20 mg daily Hypertension Continue Lisinopril 20 mg p.o. daily Atrial fibrillation, rate control Continue Eliquis 5 mg b.i.d. No new episodes Code Status: Full code DVT prophylaxis: Eliquis Nutrition: Regular Prognosis: Fair Disposition: Continue medical management. DC plan: home when ready. Date of Service: Sep 29, 2024 Billing Provider: JESUSITA STERLING MD Common Visit Codes: [id number] INP/OBS CARE(HIGH) ABDELRAHMAN FORD, KEIRA Sep 29, 2024 16:12 JESUSITA STERLING MD Sep 29, 2024 21:35
[2024-09-29] MEDS: LORazepam 0.5 MG tablet PO PRN (17:04)
[2024-09-30] VITALS (21 sets, daily range): BP systolic 99–158; BP diastolic 47–80; PULSE 60–118; RESP 13–25; TEMP 97.2–97.8; O2SAT 90–98
[2024-09-30 05:51] LABS: BASOPHILS % (AUTO) 0.1 % (0-1); EOSINOPHILS % (AUTO) 0 % (0-6); HEMATOCRIT 35.2 % (35.0-45.0); HEMOGLOBIN 11.8 g/dl (12.0-16.0); LYMPHOCYTES # (AUTO) 0.2 X10'3 (1.1-4.8); LYMPHOCYTES % (AUTO) 3.2 % (21-51); MEAN CORPUSCULAR HEMOGLOBIN 30.1 PG (27.0-31.0); MEAN CORPUSCULAR HGB CONC 33.4 g/dL (33.0-36.5); MEAN CORPUSCULAR VOLUME 89.9 FL (78-98); MEAN PLATELET VOLUME 8.5 FL (7.4-10.4); MONOCYTES # (AUTO) 0.1 X10'3 (0-0.9); MONOCYTES % (AUTO) 0.8 % (2-12); NEUTROPHILS # (AUTO) 6.4 X10'3 (1.8-7.7); NEUTROPHILS % (AUTO) 95.9 % (42-75); PLATELET COUNT 259 X10'3 (140-440); RED BLOOD COUNT 3.91 X10'6 (4.20-5.60); WHITE BLOOD COUNT 6.7 X10'3 (4.5-11.0)
[2024-09-30 05:56] LABS: ALANINE AMINOTRANSFERASE 18 U/L (12-78); ALBUMIN 3.2 G/DL (3.4-5.0); ALBUMIN/GLOBULIN RATIO 1.1 (1.1-1.5); ALKALINE PHOSPHATASE 62 IU/L (46-116); ANION GAP 3 (8-16); ASPARTATE AMINO TRANSFERASE 16 U/L (10-37); BILIRUBIN,TOTAL 0.2 MG/DL (0.1-1.0); BLOOD UREA NITROGEN 49 MG/DL (7-18); BUN/CREATININE RATIO 46.7 (10.0-20.0); CALCIUM 8.5 MG/DL (8.5-10.1); CHLORIDE 99 MMOL/L (99-107); CREATININE 1.05 MG/DL (0.40-0.90); GLUCOSE 175 MG/DL (70-104); MAGNESIUM 2.4 MG/DL (1.5-2.4); PHOSPHORUS 3.9 MG/DL (2.3-4.5); SODIUM 137 MMOL/L (135-145); eCRCL 40 ML/MIN; eGFR 51 ML/MIN
--- NOTE | 2024-09-30 14:34 | PROGRESS NOTE- Residence ---
Progress Note - Resident Providers to CC Resident Creating Document: ABDELRAHMAN FORD RES ~ Antibiotic Timeout Antibiotic Ordered?: Yes Subjective Patient seen and examined at bedside. She was able to use BiPAP on and off for a total of around 2 hours last night, breathing better from yesterday but still short of breath. She is currently on 6 L oxygen nasal cannula. Worked with PT this morning recommended post-acute care. Discussed with her that it was recommended she goes to rehab for better management of for oxygen status and breathing, initially denied as she has "certain things at home that she needs to take care of" but eventually agreed to going to a rehab for one-two weeks, she does not want to be in a rehab for six weeks. She also states that she prefers going to [facility] as it is close to her house. 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 Objective Vital Signs Date Time Temp Pulse Resp B/P (MAP) Pulse Ox O2 Delivery O2 Flow Rate FiO2 09/30/24 11:35 109 20 Nasal Cannula 6.0 09/30/24 11:26 93 44 09/30/24 06:00 97.2 99/47 (64) Result Diagram: 09/30/24 0458 09/30/24 0458 General: Awake and Alert, on 6 lt NC HEENT: Conjunctiva pink, Sclera clear, Mucus Membranes moist. Neck: Supple without masses and tenderness. Resp: Decreased breath sounds bilaterally. Bilateral rhonchi and basal crepts. Heart: Regular Rate and rhythm, normal S1 and S2 without murmur, rub or gallop. Abdomen: Soft and non tender no organomegaly Extremities: No cyanosis,clubbing or edema. Skin: Warm and Dry. Coagulation Studies Laboratory Tests Test 09/27/24 08:12 Prothrombin Time 10.5 SECONDS (9.0-12.0) INR International Normalized Ratio 1.0 INR Activated Partial Thromboplast Time 31 SECONDS (22-32) Coagulation Comments Assessment Assessment 79-year-old female with a history of COPD on 4 L hypertension and AFib fibrillation presents to the ED for shortness of breath. Plan Plan Acute on chronic hypoxic respiratory failure Acute COPD exacerbation On 09/28/2024: Patient is still pretty tight the shortness of breathe and COPD. On prepped the dose of methylprednisolone to 80 mg q.6h IV. We will continue ipratropium albuterol nebulization q.4h scheduled and q.2h p.r.n. discontinued azithromycin. Continuing Lasix of 20 mg b.i.d. started on Mucinex b.i.d. 09/29/2024: She hasn't used BIPAP over night or during the day, she says she is not able to tolerate it as it makes her claustrophobic and suffocated. Recommended to use BIPAP whenever possible as she gets pretty short of breath, she agrees to trying it Continue breathing treatments and steroids PT to work with her, CM talked to her and she wants to go home, she lives in her home and has her daughter and son living with her to help her, she does not want to go to rehab, wants to go home when ready 09/30/2024: Continue breathing treatments and IV steroids BiPAP as tolerated PT recommended rehab, after extensive discussion she agrees to go to a rehab, case management aware and working on placement Started empiric IV ceftriaxone Increase Mucinex to 1200 b.i.d. Acute on chronic CHF with preserved EF Type 2 OH secondary to demand ischemia Elevated troponin secondary to demand ischemia EF 60-65% Lasix 20 mg IV daily TEREZA secondary to vasomotor nephropathy Hold lisinopril for now in view of TEREZA Hypertension Held Lisinopril in view of tereza, resume as able Atrial fibrillation, rate control Continue Eliquis 5 mg b.i.d. No new episodes Code Status: Full code DVT prophylaxis: Eliquis Nutrition: Regular Prognosis: Fair Disposition: Continue medical management. DC plan: Rehab, [facility] working on placement Date of Service: Sep 30, 2024 Billing Provider: JESUSITA STERLING MD Common Visit Codes: [id number] INP/OBS CARE(HIGH) ABDELRAHMAN FORD, RES Sep 30, 2024 14:34 JESUSITA STERLING MD Sep 30, 2024 21:10
[2024-09-30] MEDS: CefTRIAXone/D5W-Rocephin 1gm 50 ML IV SCH (15:00)
[2024-09-30] MEDS: ipratropium/albuterol 3ml nebule NEB PRN (21:40)
[2024-09-30] MEDS: guaiFENesin ER 600mg tablet PO SCH (22:03)
[2024-09-30] MEDS: LORazepam 2 mg/ml vial IV PRN (22:24)
[2024-10-01] VITALS (14 sets, daily range): BP systolic 102–131; BP diastolic 40–68; PULSE 90–119; RESP 17–22; TEMP 97.1–97.6; O2SAT 91–99
[2024-10-01 06:27] LABS: BASOPHILS % (AUTO) 0.1 % (0-1); EOSINOPHILS % (AUTO) 0 % (0-6); HEMATOCRIT 37.3 % (35.0-45.0); HEMOGLOBIN 12.3 g/dl (12.0-16.0); LYMPHOCYTES # (AUTO) 0.2 X10'3 (1.1-4.8); LYMPHOCYTES % (AUTO) 3.8 % (21-51); MEAN CORPUSCULAR HGB CONC 33.1 g/dL (33.0-36.5); MEAN CORPUSCULAR VOLUME 90.8 FL (78-98); MEAN PLATELET VOLUME 8.6 FL (7.4-10.4); MONOCYTES # (AUTO) 0.1 X10'3 (0-0.9); MONOCYTES % (AUTO) 1.5 % (2-12); NEUTROPHILS # (AUTO) 5.4 X10'3 (1.8-7.7); NEUTROPHILS % (AUTO) 94.6 % (42-75); PLATELET COUNT 267 X10'3 (140-440); RED BLOOD COUNT 4.11 X10'6 (4.20-5.60); WHITE BLOOD COUNT 5.7 X10'3 (4.5-11.0)
[2024-10-01 06:39] LABS: ALANINE AMINOTRANSFERASE 21 U/L (12-78); ALBUMIN 3.3 G/DL (3.4-5.0); ALBUMIN/GLOBULIN RATIO 1.1 (1.1-1.5); ALKALINE PHOSPHATASE 66 IU/L (46-116); ANION GAP 3 (8-16); ASPARTATE AMINO TRANSFERASE 18 U/L (10-37); BILIRUBIN,TOTAL 0.2 MG/DL (0.1-1.0); BLOOD UREA NITROGEN 41 MG/DL (7-18); BUN/CREATININE RATIO 51.3 (10.0-20.0); CALCIUM 8.7 MG/DL (8.5-10.1); CHLORIDE 98 MMOL/L (99-107); GLUCOSE 171 MG/DL (70-104); MAGNESIUM 2.4 MG/DL (1.5-2.4); PHOSPHORUS 3.1 MG/DL (2.3-4.5); POTASSIUM 4.7 MMOL/L (3.5-5.1); SODIUM 135 MMOL/L (135-145); TOTAL CARBON DIOXIDE 34.5 MMOL/L (24-32); TOTAL PROTEIN 6.2 G/DL (6.4-8.2); eCRCL 52 ML/MIN; eGFR 69 ML/MIN
--- NOTE | 2024-10-01 19:20 | DISCHARGE SUMMARY-Residence ---
Discharge Summary Providers to CC Resident Creating Document: ABDELRAHMAN FORD RES ~ Discharge Summary Admission Diagnosis: COPD exacerbation Hospital Course DATE OF ADMISSION: 09/27/2024 DATE OF DISCHARGE: 10/01/2024 Hospital course same as mentioned discharge summary. Discharge Diagnosis\Comment: Acute on chronic hypoxic respiratory failure Acute COPD exacerbation Acute on chronic CHF with preserved EF Type 2 NV demand ischemia TEREZA secondary to vasomotor nephropathy Hypertension AFib rate controlled Discharge medications: Aspirin 81 mg p.o. daily atorvastatin 20 mg p.o. HS Budesonide formoterol inhaler b.i.d. Buspirone 10 mg p.o. t.i.d. Calcium carbonate 600 plus vitamin D3 tablet p.o. daily Cholecalciferol 2000 unit PO daily 1000 mcg B12 p.o. daily Fish oil one tablet p.o. daily Gabapentin 600 mg p.o. daily Ativan 0.5 mg p.o. b.i.d. p.r.n. anxiety Nitrostat sublingual one tablet 0.4 mg q.5h minutes p.r.n. for chest pain Albuterol 2.3 mg/3 mL nebulizer q.1h hours p.r.n. Eliquis 5 mg p.o. b.i.d. Lasix 20 p.o. daily Mucinex 1200 p.o. b.i.d. DuoNebs q.4 p.r.n. Lisinopril 20 p.o. daily Prednisolone taper 60 mg x 3 days 40 mg x 3 days 20 mg x 2 days 10 mg x 3 days and then stop Operations\Procedures: None Consultants: None Complications: None Condition on DC: Stable for transfer Discharge Summary: As per HPI: 79-year-old female with a history of COPD on 4 L hypertension and AFib fibrillation presents to the ED for shortness of breath. Patient started to experience shortness of breath for the last few hours and his O2 saturation was 70 %. Patient presenting to the ED who was brought distress restarted on BiPAP and given IV steroids as well as azithromycin. Patient's symptoms started to improve Hospital course: On further evaluation she was hypoxic requiring BiPAP. Chest x-ray clear was started on Zithromax x3 days steroids and nebulizers. Was also started on Lasix in view of CHF with preserved EF. Initially she was not using BiPAP as she was not able to tolerated, was making her claustrophobic in suffoc ated. After extensive discussion and recommendations that it will help her breathing she agreed to try it. Yesterday and today she has been able to tolerate it and has been using it on and off. It was recommended that she goes to a rehab due to her breathing issues and need for BiPAP, initially she was reluctant as she had a lot of things that she had to take care at home but ev entually she agreed to go to a rehab. Breathing treatments were continued and IV steroids were given. BiPAP was administered as tolerated. Mucinex 1200 b.i.d. was given. Her hospital course is uncomplicated she is hemodynamically stable on the day of discharge and she has been discharged to [facility] rehab her physical exam is as follows: General: Awake and Alert, on 6 lt NC HEENT: Conjunctiva pink, Sclera clear, Mucus Membranes moist. Neck: Supple without masses and tenderness. Resp: Decreased breath sounds bilaterally. Bilateral rhonchi and basal crepts. Heart: Regular Rate and rhythm, normal S1 and S2 without murmur, rub or gallop. Abdomen: Soft and non tender no organomegaly Extremities: No cyanosis,clubbing or edema. Skin: Warm and Dry. Discharge medications can be found above. Laboratory Tests Test 09/30/24 04:58 10/01/24 06:07 White Blood Count 6.7 X10'3 5.7 X10'3 Red Blood Count 3.91 X10'6 4.11 X10'6 Hemoglobin 11.8 g/dl 12.3 g/dl Hematocrit 35.2 % 37.3 % Mean Corpuscular Volume 89.9 FL 90.8 FL Mean Corpuscular Hemoglobin 30.1 PG 30.0 PG Mean Corpuscular Hemoglobin Concent 33.4 g/dL 33.1 g/dL Red Cell Distribution Width 14.0 % 14.0 % Platelet Count 259 X10'3 267 X10'3 Mean Platelet Volume 8.5 FL 8.6 FL Neutrophils (%) (Auto) 95.9 % 94.6 % Lymphocytes (%) (Auto) 3.2 % 3.8 % Monocytes (%) (Auto) 0.8 % 1.5 % Eosinophils (%) (Auto) 0 % 0 % Basophils (%) (Auto) 0.1 % 0.1 % Neutrophils # (Auto) 6.4 X10'3 5.4 X10'3 Lymphocytes # (Auto) 0.2 X10'3 0.2 X10'3 Monocytes # (Auto) 0.1 X10'3 0.1 X10'3 Eosinophils # (Auto) 0.0 X10'3 0.0 X10'3 Basophils # (Auto) 0.0 X10'3 0.0 X10'3 CBC Comment Sodium Level 137 MMOL/L 135 MMOL/L Potassium Level 4.0 MMOL/L 4.7 MMOL/L Chloride Level 99 MMOL/L 98 MMOL/L Carbon Dioxide Level 35.0 MMOL/L 34.5 MMOL/L Anion Gap 3 3 Blood Urea Nitrogen 49 MG/DL 41 MG/DL Creatinine 1.05 MG/DL 0.80 MG/DL Estimated GFR/1.73 m2 51 ML/MIN 69 ML/MIN BUN/Creatinine Ratio 46.7 51.3 Glucose Level 175 MG/DL 171 MG/DL Calcium Level 8.5 MG/DL 8.7 MG/DL Phosphorus Level 3.9 MG/DL 3.1 MG/DL Magnesium Level 2.4 MG/DL 2.4 MG/DL Total Bilirubin 0.2 MG/DL 0.2 MG/DL Aspartate Amino Transf (AST/SGOT) 16 U/L 18 U/L Alanine Aminotransferase (ALT/SGPT) 18 U/L 21 U/L Alkaline Phosphatase 62 IU/L 66 IU/L Total Protein 6.0 G/DL 6.2 G/DL Albumin 3.2 G/DL 3.3 G/DL Globulin 2.8 G/DL 2.9 G/DL Albumin/Globulin Ratio 1.1 1.1 Chemistry Comments *Problems/Diagnosis: (1) Acute exacerbation of chronic obstructive airways disease Status: Acute Total Time Spent on D/C: > 30 Minutes Date of Service: Oct 01, 2024 Billing Provider: JESUSITA STERLING MD Common Visit Codes: [id number]/[id number] DISCH DAY >30min ABDELRAHMAN FORD RES Oct 01, 2024 19:19 JESUSITA STERLING MD Oct 01, 2024 21:36
[2024-10-01] MEDS ORDERED: furosemide 20 MG/2 ML vial IV SCH (20:00)
== END 2024-10-01 15:00 | DRG 280 ==
LOC: ER 20:04 → ED HOLD 09-27 03:36 → CANBEDREQ 09-27 13:15 → PCU 3S 09-27 15:55
PROVIDERS: ADMIT Internal Medicine; ATTEND Internal Medicine
PROC: 5A09357 Assistance with Respiratory Ventilation, Less than 24 Consecutive Hours, Continuous Positive Airway Pressure (ICD-10-PCS; 2024-09-26)
PROC: 5A09357 Assistance with Respiratory Ventilation, Less than 24 Consecutive Hours, Continuous Positive Airway Pressure (ICD-10-PCS; principal; 2024-09-27)
PROC: 5A09357 Assistance with Respiratory Ventilation, Less than 24 Consecutive Hours, Continuous Positive Airway Pressure (ICD-10-PCS; 2024-09-29)
PROC: 5A09357 Assistance with Respiratory Ventilation, Less than 24 Consecutive Hours, Continuous Positive Airway Pressure (ICD-10-PCS; 2024-09-30)
DX: I11.0 Hypertensive heart disease with heart failure (principal); I50.33 Acute on chronic diastolic (congestive) heart failure; I21.A1 Myocardial infarction type 2; J96.21 Acute and chronic respiratory failure with hypoxia; N17.0 Acute kidney failure with tubular necrosis; J44.1 Chronic obstructive pulmonary disease with (acute) exacerbation; I48.91 Unspecified atrial fibrillation; Z98.51 Tubal ligation status; Z79.01 Long term (current) use of anticoagulants; Z79.82 Long term (current) use of aspirin; Z79.899 Other long term (current) drug therapy; Z99.81 Dependence on supplemental oxygen; Z87.891 Personal history of nicotine dependence
CPT/HCPCS: 36415; 36600; 71045; 80053; 82803; 83735; 83880; 84100; 84439; 84443; 84484; 85018; 85025; 85610; 85730; 87081; 93005; 94640; 94660; 94664; 94668; 94760; 96365; 97161; 97530; 99291; A4615; A7015; G0378; J0456; J0696; J1938; J2060; J2919; J3490; J7512

== ENCOUNTER 2024-11-17 09:39 | Emergency (ER) | payer MEDICARE, BC ==
[~2024-11-17] VITALS: Ht 167.6 cm; Wt 61.0 kg
[2024-11-17] VITALS (9 sets, daily range): BP systolic 103–176; BP diastolic 45–71; PULSE 91–104; RESP 12–28; TEMP 97.6–99.8; O2SAT 96
[~2024-11-17 09:39] MED LIST changes: -CLOP-32 PO
--- NOTE | 2024-11-17 10:28 | Physician Documentation ---
History of Present Illness Chief Complaint: Abdominal Pain w/vomiting Stated Complaint: ABD PAIN Time Seen by MD: 09:51 Primary Medical Doctor: Shelbie GARNER HPI 79 yof h/o copd on 2-4 LHOT, HFpEF, afib on eliquis p/w abdominal pain. Ongoing the last few days. Also reports vomiting last night. Dark red stools this am similar to prior episode of GI bleeding. SHe is also complaining of acute on chronic foot numbness. Usually her foot feels heavy due to neuropathy. Last night she complained of severe leg pain which has since improved. Also complaining of worsening numbness the last few days tracking up her leg. 2023 admitted for symptomatic anemia with heme occult negative recommended for endoscopy and colonoscopy which she declined. Medication Reconciliation Allergies: Coded Allergies: No Known Allergies (Unverified , 09/26/24) Scheduled Apixaban (Eliquis), 5 MG PO BID Aspirin (Aspirin EC), 1 TAB PO DAILY, (Reported) Atorvastatin Calcium* (Lipitor*), 1 TABLET PO HS, (Reported) Betamethasone/Propylene Glyc (Betamethasone Dp Aug 0.05% Oin), 1 APPLIC TOP Q12H, (Reported) Budesonide/Formoterol Fumarate (Budesonide-Formoterol 80-4.5), 1 INH BID, (Reported) Buspirone Hcl* (Buspar*), 1 TAB PO TID, (Reported) Calcium Carbonate/Vitamin D3 (Calcium 600 + Vit D3 Tablet), 1 TAB PO DAILY, (Reported) Cholecalciferol (Vitamin D3) (Vitamin D3), 2,000 UNIT PO DAILY, (Reported) Cyanocobalamin (Vitamin B-12), 1 TAB PO DAILY, (Reported) Fish Oil/Dha/Epa (Fish Oil 1,200 Mg Fish Oil), 1 EACH PO DAILY, (Reported) Furosemide (Furosemide), 1 TAB PO DAILY Gabapentin (Gabapentin), 1 TAB PO DAILY, (Reported) Lisinopril (Lisinopril), 1 TAB PO DAILY, (Reported) Pantoprazole Sodium (Pantoprazole Sodium), 1 TAB PO DAILY, (Reported) Scheduled PRN Lorazepam (Ativan), 1 TAB PO Q12H PRN PRN for anxiety, (Reported) Discontinued Medications Guaifenesin (Mucinex), 1,200 MG PO Q12H Discontinued Reason: patient no longer taking Nitroglycerin SL* (Nitrostat SL*), 1 TAB SL Q5MIN PRN for Chest pain Q5min PRNx3-call MD, (Reported) Discontinued Reason: patient no longer taking Past Medical History Past Medical History: Seizures, *CARDIOVASCULAR*, Congestive Heart Failure, Hypertension, COPD, Deep Vein Thrombosis Past Surgical History: tubal ligation Patient History: FH: alcoholism MOTHER SISTER (alcoholism, alzheimer's), FHx: stomach cancer HALF BROTHER, , Age: 30's - 40, Cause: Stomach cancer Alcohol Use: Occasionally Drug Use: none Lives with: Family Lives In: Home Review of Systems Gastrointestinal: Reports: abdominal pain Physical Exam Vital Signs: Heart Rate: 101, Respiratory Rate: 22, BP: 104/44, Pulse Oximetry: 100, Weight: 61.000 Oxygen Flow Rate: 4.0 Physical Exam toxic pulm ctab abdomen soft mild LLQ ttp no guarding or rebound neuro awake alert oriented cardiac no murmur ext warm bilateral legs, pulses bilaterally absent, not dopplerable. Progress Progress Note 1228 blood pressure improving following transfusion and reversal 1400 feeling improved 7pm still waiting for transfer Results/Orders Reviewed/noted all lab results: Yes Results/Orders Orders - GRIFFIN ANDRES MD Urinalysis, Cult If Indicated (11/17/24 09:59) Cbc/Diff (11/17/24 09:59) BMP (11/17/24 09:59) Monitor (11/17/24 09:59) Oxygen (11/17/24 09:59) Lipase (11/17/24 09:59) CMP (11/17/24 09:59) Straight Cath For Urine Sample (11/17/24 09:59) Vital Signs 11/17/24 11/17/24 09:43 10:23 Pulse 101 Resp 22 B/P (MAP) 104/44 Pulse Ox 100 100 O2 Delivery Nasal Cannula* O2 Flow Rate 4.0 4 FiO2 N/A Medical Decision Making Additional info obtained from: old records Departure Disposition: 02 SHORT TERM HOSPITAL Impression: Primary Impression: GI bleed Qualified Codes: K92.2 - Gastrointestinal hemorrhage, unspecified Additional Impression: Peripheral vascular disease Additional Impression Text GI bleed on eliquis afib, initially hypotensive, hgb 4.6. transfused 2 units and reversed. Also acute on chronic leg numbness, found to have Fusiform aneurysmal dilatation of the infrarenal abdominal aorta to 5.0 cm. 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 High-grade stenoses of the bilateral external iliac arteries. 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 Signed out to Dr. Restrepo pending CT lower ext, placement/transfer for GI and will also need vascular consult Referrals: NO PRIMARY CARE PROVIDER (PCP) Critical Care Note Total Time (mins): 70 Critical Care Note The very real possibility of a deterioration of this patient's condition required the highest level of my preparedness for sudden, emergent intervention. I provided critical care services, which included medication orders, frequent reevaluations of the patient's condition and response to treatment, ordering and reviewing test results, and discussing the case with various consultants. Excludes time spent performing separately billable procedures. The critical care time associated with the care of the patient was 30 minutes in the management of GI bleed Signature Scribe Signature: teodora Attestation: GRIFFIN Vega MD Nov 17, 2024 10:28
[2024-11-17 10:46] LABS: MEAN PLATELET VOLUME 7.5 FL (7.4-10.4); RED CELL DISTRIBUTION WIDTH 16.0 % (11.5-14.5)
[2024-11-17] MEDS: HUM PROTHROMB CPLX LANS IV ONE (10:55)
[2024-11-17] MEDS: PIGGYBACK IV ONE (10:55)
[2024-11-17] MEDS ORDERED: calcium gluconate inj. 2 GM in normal saline 100ml IV soln 100 ML IV ONE (11:00)
[2024-11-17] MEDS ORDERED: CALCIUM GLUC 1gm/50ml NACL,iso 50 ML IV ONE (11:02)
[2024-11-17] MEDS: CALCIUM GLUC 1gm/50ml NACL,iso 50 ML IV ONE ×2 (11:05→14:50)
[2024-11-17 11:06] LABS: CREATININE 1.02 MG/DL (0.40-0.90); TOTAL CARBON DIOXIDE 25.8 MMOL/L (24-32); eCRCL 43 ML/MIN; eGFR 52 ML/MIN
[2024-11-17] MEDS ORDERED: HUM PROTHROMB CPLX LANS IV ONE (11:15)
[2024-11-17] MEDS ORDERED: PIGGYBACK IV ONE (11:15)
[2024-11-17] MEDS: HUM PROTHROMB CPLX-LANS 2,000 UNIT in IV piggyback 80 ML IV ONE (12:05)
[2024-11-17 16:04] LABS: MEAN PLATELET VOLUME 7.4 FL (7.4-10.4); RED CELL DISTRIBUTION WIDTH 14.8 % (11.5-14.5)
--- NOTE | 2024-11-17 16:19 | ELECTROCARDIOGRAPH REPORT ---
[facility] Test Date: 2024-11-17 Test Time: 16:16:56 Pat Name: LEANDRA SWAN Department: [facility] Patient ID: [id number] Room: Gender: F Inspector Advanced Composite: : 1945 Requested By: GRIFFIN ANDRES Order Number: [id number] Reading MD: Dr. Dmitriy Lao Measurements Intervals [place]arte Rate: 109 P: 79 NH: 156 QRS: 83 QRSD: 92 T: -15 QT: 359 QTc: 484 Interpretive Statements Sinus tachycardia Multiple premature complexes, vent & supraven Borderline right axis deviation Borderline T abnormalities, inferior leads Electronically Signed On 11-19-2024 19:15:[address] Dmitriy Lao Please click the below link to view image of tracing.
--- NOTE | 2024-11-17 16:30 | RADIOLOGY REPORT ---
Indication: gi bleed Technique: CT axial images of the abdomen and pelvis are obtained with intravenous contrast. Coronal and sagittal reformats were obtained. Radiation Dose Information: CTDI volume is 20 mGy. Dose-length product is 2429 mGy*cm Comparison: None FINDINGS: Lung bases demonstrate pulmonary emphysematous changes. Adrenal glands, spleen and pancreas unremarkable. No enhancing hepatic lesion. Right hepatic lobe cy sts measuring 1 cm, 1.[address] evidence for cholelithiasis. Gallbladder contracted. No hydronephrosis. Stomach distended. Small bowel loops are normal in caliber. Colonic diverticular disease. Moderate v olume stool within the colon. Normal appendix. Abdominal aortic atherosclerotic disease. Celiac artery demonstrates mild, 50% stenosis of the proxim al celiac artery. Severe stenosis of the proximal SMA, greater than 80% stenosis. Moderate stenosis o f the proximal main right renal artery, approximately 60-70%. There are 2 right renal arteries.m ane urysmal dilatation of the infrarenal abdominal aorta to 5.0 x 4.4 cm with eccentric mural wall thromb us. High-grade stenosis of the left external iliac artery, greater than 80%. Occlusion of the left CF A. High-grade stenosis of the left external iliac artery, greater than 80%. Bladder distended. No free pelvic fluid. No inguinal lymphadenopathy. Temd-cd-[id number] bilateral sacr oiliac degenerative joint disease. [id number] lumbar degenerative disc disease. IMPRESSION: Fusiform aneurysmal dilatation of the infrarenal abdominal aorta to 5.0 cm. Recommend vascular surge ry consultation. 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 High-grade stenoses of the bilateral external iliac arteries. 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 Other vascular fi ndings as described. Gastric distention. Colonic diverticular disease. Other findings as described.
--- NOTE | 2024-11-17 16:48 | RADIOLOGY REPORT ---
CHEST RADIOGRAPH Indication: sob Technique: Single frontal view of the chest was obtained Comparison: DI CHEST,SINGLE VIEW on DOS: 09/26/24, DI CHEST,SINGLE VIEW on DOS: 07/16/24, DI CHEST,SING LE VIEW on DOS: 05/16/23 FINDINGS: Lines and Tubes: None Lungs: Diffuse interstitial prominence. Hyperinflation of the lungs. Pleura: No effusion. No pneumothorax. Cardiomediastinal contours: Heart size is within normal limits moderate atherosclerotic calcification and uncoiling of the aorta. Bones: No acute osseous abnormality. IMPRESSION: Hyperinflation of the lung with interstitial prominence which could be from Emphysematous changes. Un derlying pulmonary vascular congestion / infection can not be excluded.
[2024-11-17] MEDS ORDERED: LISI20TA28 PO (16:56)
[2024-11-17] MEDS ORDERED: PANT40TA54 PO (16:56)
[2024-11-17 17:10] LABS: LEUKOCYTE ESTERASE ,URINE NEGATIVE (Neg); NITRITES, URINE NEGATIVE (Neg); OCCULT BLOOD,URINE NEGATIVE (Neg)
[2024-11-17 17:15] LABS: UA COLLECTION TYPE OTHER
[2024-11-17] MEDS ORDERED: iohexol 350 MG/ML 50ML vial IV ONE (17:59)
[2024-11-17] MEDS ORDERED: vancomycin inj 1,000 MG in normal saline 250ml IV soln 250 ML IV ONE (20:35)
[2024-11-17] MEDS: piperacillin/tazo 3.375gm/50ml 50 ML IV ONE (21:00)
[2024-11-17] MEDS: ondansetron/PF 4mg/2ml inj IV ONE (21:00)
[2024-11-17] MEDS: acetaminophen 1,000mg/100ml IV 100 ML IV ONE (21:00)
--- NOTE | 2024-11-17 21:31 | RADIOLOGY REPORT ---
Examination: CT CTA ABDOMEN LOWER EXTR RUNOFF CLINICAL HISTORY: femoral artery occlusion Comparison: CTA abdomen pelvis obtained earlier today. Technique: Using helical technique, CT data from the lung bases through the toes was obtained during rapid IV contrast infusion. The examination was timed to the arterial system to generate a CT angiog raphic study. 3D images were generated at an independent work station. Dose reduction techniques incl uded automated exposure control. Radiation Dose Information: CT Dose: CTDI volume is 4.4 mGy. Dose-length product is 1780 mGy*cm Findings: Vascular: Abdominal aorta: Normal caliber, patent Celiac artery: Patent SMA: Patent Renal arteries: Patent LAMAR: Patent Right lower extremity: Common iliac artery: Patent External iliac artery: High-grade stenosis. Internal iliac artery: Patent Common femoral artery: Patent Profunda femoral artery: Patent Superficial femoral artery: Multifocal moderate grade stenoses. Popliteal artery: Patent Anterior tibial artery: Patent Peroneal tibial trunk: Patent Peroneal artery: Patent Posterior tibial artery: Patent. Left lower extremity: Common iliac artery: Patent External iliac artery: High-grade stenosis. Internal iliac artery: Patent Common femoral artery: Stable occlusion Profunda femoral artery: Patent Superficial femoral artery: Multifocal high-grade stenoses Popliteal artery: Patent Anterior tibial artery: Patent Peroneal tibial trunk: Patent Peroneal artery: Poorly opacified distally, likely occluded Posterior tibial artery: Poorly opacified distally, likely occluded Chest: Lung bases: Unremarkable. Abdomen/Pelvis: Liver: The liver is normal in size and morphology,. No focal hepatic lesion. The portal veins are pat ent. Multiple small hepatic cysts are seen. Biliary System: Gallbladder: Normal Bile Ducts: No intrahepatic or extrahepatic biliary ductal dilation. Spleen: No splenomegaly or focal splenic lesion. Pancreas: No masses or ductal dilation. Adrenals: Normal. Urinary System: Kidneys and Ureters: Normal in size and location. No renal masses. No renal or ureteral calculi. No hydronephrosis or hydroureter. Bladder: Normal. GI System: Stomach, small bowel, and large bowel are normal in caliber without wall thickening or dil ation Appendix is normal. Vasculature: Arteries: Infrarenal abdominal aortic aneurysm measures 4.6 x 4.9 cm. No evidence of dissection. Lymph nodes: No lymphadenopathy. Peritoneal cavity and surface: No free fluid. No pneumoperitoneum. Soft Tissues: Normal. Reproductive Organs: Normal. Bones: No acute fracture or aggressive osseous lesion. 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 Multifocal moderate grade stenosis throughout the superficial femoral artery. Essentially 3-vessel runoff to the toes. Left Lower Extremity arteries: High-grade stenosis in the external iliac artery. Occluded common femo ral artery. Multifocal high-grade stenosis throughout the superficial artery. Essentially 1-vessel ru noff to the toes via anterior tibial artery. Infrarenal abdominal aortic aneurysm measures up to 4.9 cm. No evidence of dissection.
[2024-11-17] MEDS: vancomycin/NS 1 GM ADD-VANTAGE 250 ML IV ONE (22:11)
[2024-11-17 22:13] LABS: MEAN PLATELET VOLUME 7.4 FL (7.4-10.4); RED CELL DISTRIBUTION WIDTH 14.6 % (11.5-14.5)
[2024-11-17] MEDS: midazolam 1 mg/ML 2ml injection IV ONE (22:14)
[2024-11-17] MEDS: ondansetron/PF 4mg/2ml inj IM ONE (22:45)
== END 2024-11-17 23:33 | disposition short-term general hospital (02) ==
LOC: ER 09:40
DX: K92.2 Gastrointestinal hemorrhage, unspecified (principal); I11.0 Hypertensive heart disease with heart failure; I50.32 Chronic diastolic (congestive) heart failure; I48.91 Unspecified atrial fibrillation; G62.9 Polyneuropathy, unspecified; J44.9 Chronic obstructive pulmonary disease, unspecified; Z72.89 Other problems related to lifestyle; Z86.718 Personal history of other venous thrombosis and embolism; Z98.51 Tubal ligation status; Z79.01 Long term (current) use of anticoagulants; Z79.82 Long term (current) use of aspirin; Z79.899 Other long term (current) drug therapy
CPT/HCPCS: 36415; 36430; 71045; 74174; 75635; 80053; 81003; 83605; 83690; 84145; 85025; 85027; 86885; 86900; 86901; 86920; 87040; 87077; 87186; 93005; 96365; 96367; 96372; 96375; 99291; C1758; C9132; J0131; J0612; J2250; J2405; J2543; J3373; J7030; J7040; P9016; Q9967; 99285; J7168

== ENCOUNTER 2025-03-19 14:23 | Outpatient (CLI) | payer MEDICARE, BC ==
[~2025-03-19] VITALS: Ht 157.5 cm; Wt 57.6 kg
[~2025-03-19 14:23] MED LIST changes: -ASPI81TA52 PO; -BETA45OI5 TOP; -BUDE10.27 INH; -CALC-1074 PO; -FISH1CAP15 PO; -GUAI600T45 PO; +IPRA3AMP31 NEB; +LISI20TA28 PO; -LORA-268 PO; -NITR0.4T51 SL; +PANT40TA54 PO
[2025-03-19] MEDS: albuterol 2.5 MG/3 ML nebule NEB ONE (15:29)
[2025-03-19 15:31] VITALS: PULSE 94; RESP 18; O2SAT 94
[2025-03-19 15:43] VITALS: PULSE 95; RESP 18
--- NOTE | 2025-03-20 15:54 | PROCEDURE NOTE - Respiratory ---
Procedure Note-Respiratory Providers to Copies To 1: REBEKAH AGUILAR MD Procedure Name: This is a complete pulmonary function study dated March 19, 2025. Spirometry measurements: The forced vital capacity is at the lower limit of normal. The FEV1 is severely reduced. The FEV1 ratio is severely reduced. All of the measured flow rates are very poor. After inhaled bronchodilator there is only very minimal improvement in the flow rate measurements. Spirometry documents very severe obstructive ventilatory defect. Lung volume measurements: The total lung capacity is elevated. There is also elevation in the functional residual capacity and the residual volume measurements. This indicates hyperinflation of the lungs with significant air trapping within the lungs. These findings are often seen in advanced emphysema. Lung diffusion measurement: The DLCO measurement is very much reduced. It is noted that the alveolar volume measurement remains normal. The KVO measurement is the main contributing factor to the low DLCO measurement. Airway resistance measurement: The airway resistance is quite elevated. This again suggests very severe airway obstruction. Overall conclusion: This study shows severe abnormality. There is evidence for severe obstructive ventilatory defect. This is consistent with the patient's history of smoking-related COPD. The patient shows hyperinflation with air trapping within the lungs. These findings together with the very low DLCO measurements strongly suggest the presence of emphysema. This patient should completely abstain from cigarette smoking. An aggressive bronchodilator program is recommended. We have no previous studies for comparison. Close pulmonary follow-up will be required for this patient. SHAYY HUDSON MD Mar 20, 2025 15:54
== END 2025-03-19 23:59 | disposition home or self-care (01) ==
LOC: RT 14:23
PROVIDERS: ATTEND Student in an Organized Health Care Education/Training Program
DX: R09.02 Hypoxemia (principal); J44.1 Chronic obstructive pulmonary disease with (acute) exacerbation; R91.8 Other nonspecific abnormal finding of lung field
CPT/HCPCS: 94060; 94727; 94729; 94760